=== PATIENT | female | born 1955 | race Caucasian/White ===

== ENCOUNTER 2016-06-26 10:30 | Inpatient (IN) | payer OTHER ==
[~2016-06-26] VITALS: Ht 157.5 cm; Wt 66.2 kg
[~2016-06-26 10:30] MED LIST: MELO7.5 PO
[2016-06-26] MEDS ORDERED: NITROGLYCERIN 2% OINT 1 GM PACKET TOP ONE (10:45)
[2016-06-26] MEDS ORDERED: SODIUM CHLORIDE 0.9% FLUSH 10 ML FLUSH IVF PRN (10:45)
[2016-06-26] MEDS ORDERED: SODIUM CHLORID 0.9% 500 ML INJ 500 ML IV ONE (10:45)
[2016-06-26 10:57] VITALS: BP 122/68; PULSE 92; RESP 20; TEMP 98.2; O2SAT 94
--- NOTE | 2016-06-26 10:57 | PD ---
HPI Chief Complaint: chest pain Time Seen by Provider: 10:42 Travel History International Travel<30 days: No Contact w/Intl Traveler<30days: No History of Present Illness HPI This is a 60 year-old woman who presents to the emergency department complaining of chest pain. She states starting this morning shortly after arriving to work at about 7:30 or so she started getting mid sternal chest pressure that radiated to the left arm. Initially she thought was indigestion but then symptoms started to get worse. She started getting shaky, dizzy, like she couldn't breathe. No diaphoresis. She states she otherwise had been feeling generally well. She's had chest pain intermittently in the past, and no etiology has been found. Review of records show she was seen in June 2011 had a negative myocardial perfusion scan. She did start the nicotine patch yesterday. She states she's used them in the past and try to quit smoking and hasn't really had trouble with it. She smokes about a half pack per day. She' s also been under more stress recently. Risk factors include diabetes, hyperlipidemia, and a family history of heart disease as well as tobacco use. She states she was told at some point in the past she had a previous mini stroke , but has no residual symptoms. History Past Medical History Narrative Medical Diabetes Hyperlipidemia TIA Menopausal: Yes Social History Alcohol Use: No Tobacco Use: Yes (STATES 1 PPD) Allergies-Medications (Allergen,Severity, Reaction): Coded Allergies: Aspirin (Verified Allergy, Severe, HIVES, 06/26/16) Benadryl (Verified Allergy, Severe, HIVES, 06/26/16) Penicillin (Verified Allergy, Severe, HIVES, 06/26/16) Vicodin (Verified Allergy, Severe, HIVES, 06/26/16) Buspar (Verified Allergy, Unknown, UNKOWN RXN, 06/26/16) Reported Meds & Prescriptions Reported Meds & Active Scripts Active No Active Prescriptions or Reported Medications Review of Systems Except as stated in HPI: all other systems reviewed are Neg Physical Exam Narrative GENERAL: Well-appearing 60 year-old woman, no acute distress. SKIN: Focused skin assessment warm/dry. NECK: Trachea midline. No JVD. CARDIOVASCULAR: Regular rate and rhythm. No murmur appreciated. RESPIRATORY: No accessory muscle use. Clear to auscultation. Breath sounds equal bilaterally. GASTROINTESTINAL: Abdomen is flat and soft. She has mild to moderate right upper quadrant tenderness. MUSCULOSKELETAL: No obvious deformities. No edema. NEUROLOGICAL: Awake and alert. No obvious cranial nerve deficits. Motor grossly within normal limits. Normal speech. Data Data Last Documented VS Vital Signs Date Time Temp Pulse Resp B/P Pulse Ox O2 Delivery O2 Flow Rate FiO2 06/26/16 11:00 96 Nasal Cannula 2 06/26/16 10:57 98.2 92 20 122/68 Orders Electrocardiogram (06/26/16 10:42) Ckmb (Isoenzyme) Profile (06/26/16 10:42) Complete Blood Count With Diff (06/26/16 10:42) Comprehensive Metabolic Panel (06/26/16 10:42) Magnesium (Mg) (06/26/16 10:42) Prothrombin Time / Inr (Pt) (06/26/16 10:42) Act Partial Throm Time (Ptt) (06/26/16 10:42) Troponin I (06/26/16 10:42) Lipase (06/26/16 10:42) Chest, Single Ap (06/26/16 10:42) Ecg Monitoring (06/26/16 10:42) Bilateral Bp Monitoring (06/26/16 10:42) Iv Access Insert/Monitor (06/26/16 10:42) Oximetry (06/26/16 10:42) Oxygen Administration (06/26/16 10:42) Nitroglycerin 2% Oint (Nitroglycerin 2% (06/26/16 10:45) Sodium Chloride 0.9% Flush (Ns Flush) (06/26/16 10:45) Sodium Chlorid 0.9% 500 Ml Inj (Ns 500 M (06/26/16 10:45) Us Abdomen Gallbladder (06/26/16 ) Admit Order (Ed Use Only) (06/26/16 ) Labs Laboratory Tests Test 06/26/16 11:05 White Blood Count 10.5 TH/MM3 Red Blood Count 4.55 MIL/MM3 Hemoglobin 12.9 GM/DL Hematocrit 38.7 % Mean Corpuscular Volume 85.0 FL Mean Corpuscular Hemoglobin 28.4 PG Mean Corpuscular Hemoglobin 33.5 % Concent Red Cell Distribution Width 14.3 % Platelet Count 264 TH/MM3 Mean Platelet Volume 9.4 FL Neutrophils (%) (Auto) 67.1 % Lymphocytes (%) (Auto) 26.2 % Monocytes (%) (Auto) 5.3 % Eosinophils (%) (Auto) 0.8 % Basophils (%) (Auto) 0.6 % Neutrophils # (Auto) 7.0 TH/MM3 Lymphocytes # (Auto) 2.8 TH/MM3 Monocytes # (Auto) 0.6 TH/MM3 Eosinophils # (Auto) 0.1 TH/MM3 Basophils # (Auto) 0.1 TH/MM3 CBC Comment DIFF FINAL Differential Comment Prothrombin Time 10.0 SEC Prothromb Time International 0.9 RATIO Ratio Activated Partial 28.5 SEC Thromboplast Time Sodium Level 139 MEQ/L Potassium Level 3.7 MEQ/L Chloride Level 109 MEQ/L Carbon Dioxide Level 21.2 MEQ/L Anion Gap 9 MEQ/L Blood Urea Nitrogen 10 MG/DL Creatinine 0.71 MG/DL Estimat Glomerular Filtration 85 ML/MIN Rate Random Glucose 105 MG/DL Calcium Level 9.0 MG/DL Magnesium Level 1.9 MG/DL Total Bilirubin 0.3 MG/DL Aspartate Amino Transf 10 U/L (AST/SGOT) Alanine Aminotransferase 21 U/L (ALT/SGPT) Alkaline Phosphatase 98 U/L Total Creatine Kinase 82 U/L Troponin I 0.07 NG/ML Total Protein 7.1 GM/DL Albumin 3.5 GM/DL Lipase 184 U/L MDM Medical Decision Making Medical Screen Exam Complete: Yes Emergency Medical Condition: Yes Interpretation(s) My review of EKG: Normal sinus rhythm at a rate of 92, normal axis, normal intervals, no acute ischemia. LABS: CBC is unremarkable. CMP is unremarkable Troponin 0.07 Lipase normal Coags unremarkable Chest x-ray: Negative Right upper quadrant ultrasound: Negative. Differential Diagnosis Chest pain, anxiety, hepatobiliary disease, cholecystitis, other Narrative Course Medical decision making INITIAL: 60 year-old woman who presents emergency Department with midsternal chest pain starting today. She was sounds like she had an anxiety attack associated with it. She's been having some intermittent GI problems. She does stop her gallbladder. She has some mild to moderate tenderness in the right upper quadrant. We'll check ultrasound of her gallbladder, labs and chest x-ray , likely admission to chest pain Center for further evaluation. FINAL: Initial workups unremarkable except for trace elevation in the troponin. Given this elevation, not a candidate for the chest pain Center. We'll plan on admission to medicine for serial cardiac enzymes, further evaluation. Diagnosis Primary Impression: Chest pain Scripts No Active Prescriptions or Reported Meds Prasanth Mccall MD Jun 26, 2016 10:57 Prasanth Mccall MD Jun 26, 2016 10:57
--- NOTE | 2016-06-26 11:07 | RADRPT ---
EXAM DATE/TIME: 06/26/2016 10:40 [facility] COMPARISON: CHEST SINGLE AP, March 31, 2015, 18:15. INDICATIONS : Chest pain. MEDICAL HISTORY : None. Smoker. SURGICAL HISTORY : None. ENCOUNTER: Initial ACUITY: 1 day PAIN SCORE: 3/10 LOCATION: Bilateral chest FINDINGS: A single view of the chest demonstrates the lungs to be symmetrically aerated without evidence of mas s, infiltrate or effusion. The cardiomediastinal contours are unremarkable. Osseous structures are intact. CONCLUSION: No acute disease. Noe Ramos MD FACR on June 26, 2016 at 11:05 Board Certified Radiologist. This report was verified electronically.
[2016-06-26 11:25] LABS: BASOPHIL # 0.1 TH/MM3 (0-0.2); BASOPHIL % 0.6 % (0.0-2.0); EOSINOPHIL # 0.1 TH/MM3 (0-0.4); EOSINOPHIL % 0.8 % (0.0-4.0); HEMATOCRIT 38.7 % (35.0-46.0); HEMO FLAGS DIFF FINAL; LYMPH % 26.2 % (9.0-44.0); LYMPHOCYTE # 2.8 TH/MM3 (1.0-4.8); MEAN CORPUSCULAR HEMOGLOBIN 28.4 PG (27.0-34.0); MEAN CORPUSCULAR HGB CONC 33.5 % (32.0-36.0); MONO % 5.3 % (0.0-8.0); NEUT % 67.1 % (16.0-70.0); PLATELET COUNT 264 TH/MM3 (150-450); RED BLOOD COUNT 4.55 MIL/MM3 (4.00-5.30); RED CELL DISTRIBUTION WIDTH 14.3 % (11.6-17.2); WHITE BLOOD COUNT 10.5 TH/MM3 (4.0-11.0)
[2016-06-26 11:38] LABS: APTT (PATIENT) 28.5 SEC (24.3-30.1); INTERNATIONAL NORMALIZED RATIO 0.9 RATIO
[2016-06-26 11:45] LABS: ALT (GPT) 21 U/L (10-53); ANION GAP 9 MEQ/L (5-15); AST (GOT) 10 U/L (15-37); BICARBONATE 21.2 MEQ/L (21.0-32.0); BLOOD UREA NITROGEN 10 MG/DL (7-18); CHLORIDE 109 MEQ/L (98-107); GLOMERULAR FILTRATION RATE 85 ML/MIN (>89); MAGNESIUM 1.9 MG/DL (1.5-2.5); POTASSIUM 3.7 MEQ/L (3.5-5.1); SODIUM (NA) 139 MEQ/L (136-145)
[2016-06-26 11:49] LABS: ALKALINE PHOSPHATASE 98 U/L (45-117); TOTAL BILIRUBIN ADULT 0.3 MG/DL (0.2-1.0)
--- NOTE | 2016-06-26 11:49 | RADRPT ---
EXAM DATE/TIME: 06/26/2016 11:13 [facility] COMPARISON: No previous studies available for comparison. INDICATIONS : Right upper quadrant pain. MEDICAL HISTORY : Hypercholesterolemia. CAD. Heart attack. SURGICAL HISTORY : section. Foreign body removal from right knee, straight pins. ENCOUNTER: Initial ACUITY: 4-6 days PAIN SCORE: 5/10 LOCATION: Right upper quadrant MEASUREMENTS: LIVER: 15.5 cm length COMMON DUCT: 4 mm RIGHT KIDNEY: 10.9 x 4.5 x 4.5 cm FINDINGS: LIVER: Normal echotexture without focal lesion or ductal dilatation. COMMON DUCT: No intraluminal mass or stone visualized. GALLBLADDER: Contains no stones, demonstrates no wall thickening or pericholecystic fluid. PANCREAS: The visualized portions are within normal limits. RIGHT KIDNEY: No evidence of hydronephrosis, stone, or mass. CONCLUSION: Negative for gallstones. Noe Ramos MD FACR on June 26, 2016 at 11:46 Board Certified Radiologist. This report was verified electronically.
[2016-06-26 11:52] LABS: CREATINE KINASE 82 U/L (26-192)
--- NOTE | 2016-06-26 13:30 | HHI.HP ---
HPI Service Family Medicine Primary Care Physician No Primary Care Physician Admission Diagnosis chest pain, rule out FL Diagnoses: International Travel<30 Days: No Contact w/Intl Traveler<30days: No Known Affected Area: No History of Present Illness 60 yo female with h/o diet-controlled DM presenting for evaluation of chest pain. At work today AM, she got substernal pain in chest which felt like someone sitting on it. [place] like maybe it was indigestion. Getting worse, then she started shaking and feeling dizzy/nauseous. Never had this pain before. A/w SOB. No diaphoresis or palpitations. No panic/fear. She had recently started nicotine patch (1 day prior to symptoms). She had one similar episode in 2012 at which time she had a stress test done which was negative. Review of Systems Constitutional: DENIES: Fever, Chills Endocrine: DENIES: Abnorml menstrual pattern Eyes: DENIES: Blurred vision Ears, nose, mouth, throat: DENIES: Hearing loss, Vertigo Respiratory: COMPLAINS OF: Wheezing, Shortness of breath, DENIES: Cough, Sputum production Cardiovascular: COMPLAINS OF: Chest pain, DENIES: Palpitations, Syncope, Lower Extremity Edema Gastrointestinal: COMPLAINS OF: Nausea, DENIES: Abdominal pain, Black stools, Bloody stools, Constipation, Diarrhea, Vomiting Genitourinary: DENIES: Abnormal vaginal bleeding Musculoskeletal: DENIES: Joint pain Integumentary: DENIES: Rash Hematologic/lymphatic: DENIES: Bruising Neurologic: DENIES: Headache, Localized weakness Psychiatric: DENIES: Anxiety, Depression Past Family Social History Past Medical History DM - diet controlled, glucose 100-150 Hyperlipidemia Past Surgical History C/S Knee operation Left (trauma as child) Reported Medications 81 mg ASA Allergies: Coded Allergies: Aspirin (Verified Allergy, Severe, HIVES, 06/26/16) Benadryl (Verified Allergy, Severe, HIVES, 06/26/16) Penicillin (Verified Allergy, Severe, HIVES, 06/26/16) Vicodin (Verified Allergy, Severe, HIVES, 06/26/16) Buspar (Verified Allergy, Unknown, UNKOWN RXN, 06/26/16) Active Ordered Medications Current Medications Medications (Trade) Dose Ordered Sig/Yvette Route Start Time Stop Time Status Last Admin (NS Flush) 2 ml UNSCH PRN IVF 06/26/16 10:45 (NS Flush) 2 ml UNSCH PRN IV FLUSH 06/26/16 14:15 (NS Flush) 2 ml BID IV FLUSH 06/26/16 21:00 (Senokot) 17.2 mg Q12H PRN PO 06/26/16 14:15 (Ambien) 5 mg HS PRN PO 06/26/16 14:15 (Lovenox Inj) 40 mg Q24H SQ 06/26/16 15:00 06/26/16 15:15 (Tylenol) 650 mg Q6H PRN PO 06/26/16 14:15 Family History Mom - DM, COPD, CHF, HTN Social History Tob - smoked 40 years 1 PPD Alc - Don't drink Rx - none; drugs h/o cocaine, meth Living - mobile home 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 Cool and dry. HEAD: NC/AT EYES: PERRL. EOMI. No conjunctival injection or drainage. ENT: MMM, OP without erythema, tonsillar swelling, or exudate. NECK: No JVD. CARDIOVASCULAR: NRRR. Normal S1/S2. No MRG CHEST: Reproducible chest pain around left parasternal intercostal muscles. CTAB. No crackles or wheezes. GASTROINTESTINAL: Abdomen soft, non-distended, minimally tender to palpation right lateral quadrant. No hepato-splenomegaly or palpable masses. MUSCULOSKELETAL: Extremities without clubbing, cyanosis, or edema. NEUROLOGICAL: Awake and alert. Cranial nerves II through XII grossly intact. Moves all extremities without difficulty. Normal speech. Laboratory Laboratory Tests Test 06/26/16 11:05 White Blood Count 10.5 Red Blood Count 4.55 Hemoglobin 12.9 Hematocrit 38.7 Mean Corpuscular Volume 85.0 Mean Corpuscular Hemoglobin 28.4 Mean Corpuscular Hemoglobin 33.5 Concent Red Cell Distribution Width 14.3 Platelet Count 264 Mean Platelet Volume 9.4 Neutrophils (%) (Auto) 67.1 Lymphocytes (%) (Auto) 26.2 Monocytes (%) (Auto) 5.3 Eosinophils (%) (Auto) 0.8 Basophils (%) (Auto) 0.6 Neutrophils # (Auto) 7.0 Lymphocytes # (Auto) 2.8 Monocytes # (Auto) 0.6 Eosinophils # (Auto) 0.1 Basophils # (Auto) 0.1 CBC Comment DIFF FINAL Differential Comment Prothrombin Time 10.0 Prothromb Time International 0.9 Ratio Activated Partial 28.5 Thromboplast Time Sodium Level 139 Potassium Level 3.7 Chloride Level 109 Carbon Dioxide Level 21.2 Anion Gap 9 Blood Urea Nitrogen 10 Creatinine 0.71 Estimat Glomerular Filtration 85 Rate Random Glucose 105 Calcium Level 9.0 Magnesium Level 1.9 Total Bilirubin 0.3 Aspartate Amino Transf 10 (AST/SGOT) Alanine Aminotransferase 21 (ALT/SGPT) Alkaline Phosphatase 98 Total Creatine Kinase 82 Troponin I 0.07 Total Protein 7.1 Albumin 3.5 Lipase 184 Result Diagram: 06/26/16 1105 06/26/16 1105 Imaging Last Impressions Chest X-Ray 06/26/16 1042 Signed Impressions: Service Date/Time: Sunday, June 26, 2016 10:40 - CONCLUSION: No acute disease. Noe Ramos MD FACR Gall Bladder Ultrasound 06/26/16 0000 Signed Impressions: Service Date/Time: Sunday, June 26, 2016 11:13 - CONCLUSION: Negative for gallstones. Noe Ramos MD FACR Assessment and Plan Assessment and Plan 60 year old female with PMH of diet-controlled DM presenting with: Problem List: (1) Chest pain Status: Acute Plan: History concerning for FL (substernal chest pressure, sudden onset). Patient states she has had panic attacks before and this felt like something different, but panic attack still on differential. CP could also be costochondritis given reproducibility, but with history and lab findings below it is important to r/o acute FL. EKG showing NSR, no ST-T wave changes TnI 0.08 D-dimer 0.53 (normal for age) * Trend troponin, CKMB, EKG * Well's score 0 with negative D-dimer effectively excludes PE * If negative will eventually need stress test * Telemetry * Tylenol as needed for pain * O2 NC titrated to keep SpO2 > 92% (2) DM (diabetes mellitus) Status: Acute Plan: Diabetes, uncomplicated, diet-controlled * Diet heart healthy * Accu-checks ACHS (3) FEN/PPX Status: Acute Plan: Fluids: PO only Elecs: Monitor and replete as needed Nutrition: Diet heart healthy DVT: Lovenox 40 mg SQ daily Pain: Tylenol PRN sdw Dr. Marshall Problem Qualifiers (1) DM (diabetes mellitus): Qualified Code: E11.9 - Type 2 diabetes mellitus without complication, without long-term current use of insulin Benjamín Gorman MD R1 Jun 26, 2016 13:30
[2016-06-26 13:32] VITALS: BP 128/66; PULSE 79; RESP 20; O2SAT 96
[2016-06-26] MEDS ORDERED: SENNOSIDES 8.6 MG TAB PO PRN (14:15)
[2016-06-26] MEDS ORDERED: SODIUM CHLORIDE 0.9% FLUSH 10 ML FLUSH IV FLUSH PRN (14:15)
[2016-06-26] MEDS ORDERED: ZOLPIDEM TARTRATE 5 MG TAB PO PRN (14:15)
[2016-06-26] MEDS ORDERED: ACETAMINOPHEN 325 MG TAB PO PRN (14:15)
[2016-06-26] MEDS ORDERED: ENOXAPARIN SODIUM 40 MG/0.4 ML SYRINGE SQ SCH (15:00)
[2016-06-26 15:18] VITALS: BP 146/74; PULSE 77; RESP 14; O2SAT 99
[2016-06-26 16:00] VITALS: BP 127/69; PULSE 76; RESP 20; TEMP 98.1; O2SAT 98
[2016-06-26 18:00] LABS: CREATINE KINASE 190 U/L (26-192)
[2016-06-26 18:26] LABS: CKMB 2.8 NG/ML (0.5-3.6)
[2016-06-26] MEDS ORDERED: ASPIRIN EC 81 MG TABEC PO SCH (18:30)
[2016-06-26 20:00] VITALS: BP 110/55; PULSE 82; PULSE 83; RESP 20; TEMP 98.1; O2SAT 94
[2016-06-26] MEDS ORDERED: ENOXAPARIN SODIUM 60 MG/0.6 ML SYRINGE SQ SCH (20:00)
[2016-06-26] MEDS: SODIUM CHLORIDE 0.9% FLUSH 10 ML FLUSH IV FLUSH SCH (20:52)
[2016-06-26] MEDS: ASPIRIN EC 81 MG TABEC PO SCH (20:53)
[2016-06-26] MEDS: CLOPIDOGREL 75 MG TAB PO SCH (20:53)
[2016-06-26] MEDS: METOPROLOL TARTRATE 25 MG TAB PO SCH (20:53)
[2016-06-26] MEDS: ATORVASTATIN 40 MG TAB PO SCH (20:53)
[2016-06-27] VITALS (8 sets, daily range): BP systolic 105–137; BP diastolic 55–61; PULSE 71–81; RESP 16–20; TEMP 97.8–98.4; O2SAT 93–97
[2016-06-27 01:13] LABS: CREATINE KINASE 166 U/L (26-192)
[2016-06-27 01:27] LABS: CKMB 2.2 NG/ML (0.5-3.6)
[2016-06-27 07:26] LABS: HEMATOCRIT 39.7 % (35.0-46.0); MEAN CORPUSCULAR HEMOGLOBIN 28.6 PG (27.0-34.0); MEAN CORPUSCULAR HGB CONC 33.2 % (32.0-36.0); PLATELET COUNT 206 TH/MM3 (150-450); RED BLOOD COUNT 4.62 MIL/MM3 (4.00-5.30); RED CELL DISTRIBUTION WIDTH 14.3 % (11.6-17.2); REVIEW FLAG FINAL; WHITE BLOOD COUNT 7.9 TH/MM3 (4.0-11.0)
--- NOTE | 2016-06-27 07:30 | HHI.FPPN ---
Subjective Remarks Delonte Retana is a 60yo lady with medical history significant for DM II which is diet-controlled admitted under observation for evaluation of chest pain. Chest pain was sudden onset, substernal, and described like someone sitting on her chest. + associated Shortness of Breath. Of note, she placed a nicotine patch for the first time the day prior to her symptoms. For further details, please see resident H&P. Overnight, there were no issues. This morning, pt is seen with brother in room. She reports some SOB, which has improved somewhat. She also reports some mild chest pressure substernally as well. No palpitations. She is lying flat in bed. ROS: +SOB, + chest pain. No palpitations. No edema. No fevers, no chills. No nausea. All other systems reviewed are negative. PMH/PSxH/SocHx/FamHx: Per resident H&P. Significant for: DM II, diet-controlled ; hyperlipidemia. Left knee surgery and . +Fam hx of DM II, CHF, COPD, and HTN in her mother. Her sister with DVTs of Lower extremities. Trying to quit smoking, 1PPD x 40 years. No alcohol, no recreational drug use currently ( previously cocaine and meth). 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 Objective Vitals Vital Signs Date Time Temp Pulse Resp B/P Pulse Ox O2 Delivery O2 Flow Rate FiO2 06/27/16 04:00 98.2 76 20 128/58 94 06/27/16 00:00 98.0 80 20 110/55 93 06/26/16 23:33 Nasal Cannula 2.00 06/26/16 20:00 98.1 82 20 110/55 94 06/26/16 20:00 83 06/26/16 16:00 98.1 76 20 127/69 98 06/26/16 15:18 77 14 146/74 99 Nasal Cannula 2 06/26/16 13:32 79 20 128/66 96 Nasal Cannula 2 06/26/16 11:00 96 Nasal Cannula 2 06/26/16 10:57 98.2 92 20 122/68 94 I/O 06/26/16 06/26/16 06/26/16 06/27/16 06/27/16 06/27/16 07:00 15:00 23:00 07:00 15:00 23:00 Intake Total 620 ml Output Total 350 ml Balance 270 ml Intake Oral 620 ml Output Urine Total 350 ml # Voids 2 # Bowel Movements 0 Result Diagram: 06/27/16 0643 06/26/16 1105 Objective Remarks GENERAL: in NAD, no resp distress. Nontoxic. Talks in complete sentences. Accompanied by brother. HEENT: NCAT, EOMI, no scleral icterus, no conjunctival injection. MMM. NECK: Supple, no meningeal signs. Trachea midline. CV: RRR, S1 S2. No murmurs CHEST/PULM: CTAB, no crackles, no wheezes. + tenderness to palpation left anterior chest, which reproduces her pain. ABD/GI: +BS, soft, nondistended. Mild tenderness throughout. Negative Davila's sign. EXT: 2+ DP pulses. No edema. Mild bilateral calf tenderness. No palpable cords. NEURO: Awake, alert. normal muscle tone. Grossly nonfocal. SKIN: No rashes, no jaundice. PSYCH: Mood and affect are appropriate. Speech fluent. Does not appear to respond to internal stimuli. A/P Assessment and Plan 60 year old female with PMH of diet-controlled DM admitted under observation for acute onset of substernal chest pain. Attending Attestation Patient seen, examined, and discussed with resident team. Chart has been reviewed. Problem List: (1) Chest pain Status: Acute Plan: History concerning for MA (substernal chest pressure, sudden onset). Patient states she has had panic attacks before and this felt like something different, but panic attack still on differential. CP could also be costochondritis given reproducibility, but with history and lab findings below it is important to r/o acute MA. EKG #2 with inverted T waves in lead V2, which is a change from EKG #1. Troponin 0.07--> 0.8 --> 0.36. Although D-Dimer normal for age at 0.53 (less than 0.58) and Wells score is 0, given acute onset of chest pain and elevated troponin, which improved without intervention, will check CTA to evaluate for PE. (2) DM (diabetes mellitus) Status: Chronic Plan: Diabetes, uncomplicated, diet-controlled * Diet heart healthy * Accu-checks ACHS * Provide/order sliding scale insulin if glucose is elevated. (3) Tobacco abuse Status: Chronic Plan: Pt currently attempting to quit. Smoking cessation is encouraged. Problem Qualifiers (1) DM (diabetes mellitus): Qualified Code: E11.9 - Type 2 diabetes mellitus without complication, without long-term current use of insulin Denise Aly MD Jun 27, 2016 07:30 Problem Qualifiers (1) DM (diabetes mellitus): Qualified Code: E11.9 - Type 2 diabetes mellitus without complication, without long-term current use of insulin Denise Aly MD Jun 27, 2016 07:30 Intake Oral 620 ml Output Urine Total 350 ml # Voids 2 # Bowel Movements 0 Result Diagram: 06/27/16 0643 06/26/16 1105 Objective Remarks GENERAL: HEENT: NECK: CV: CHEST/PULM: ABD/GI: EXT: NEURO: SKIN: PSYCH: A/P Assessment and Plan 60 year old female with PMH of diet-controlled DM presenting with: Problem List: (1) Chest pain Status: Acute Plan: History concerning for MA (substernal chest pressure, sudden onset). Patient states she has had panic attacks before and this felt like something different, but panic attack still on differential. CP could also be costochondritis given reproducibility, but with history and lab findings below it is important to r/o acute MA. EKG showing NSR, no ST-T wave changes TnI 0.08 D-dimer 0.53 (normal for age) * Trend troponin, CKMB, EKG * Well's score 0 with negative D-dimer effectively excludes PE * If negative will eventually need stress test * Telemetry * Tylenol as needed for pain * O2 NC titrated to keep SpO2 > 92% (2) DM (diabetes mellitus) Status: Acute Plan: Diabetes, uncomplicated, diet-controlled * Diet heart healthy * Accu-checks ACHS (3) FEN/PPX Status: Acute Plan: Fluids: PO only Elecs: Monitor and replete as needed Nutrition: Diet heart healthy DVT: Lovenox 40 mg SQ daily Pain: Tylenol PRN sdw Dr. Marshall Problem Qualifiers (1) DM (diabetes mellitus): Qualified Code: E11.9 - Type 2 diabetes mellitus without complication, without long-term current use of insulin Denise Aly MD Jun 27, 2016 07:30
[2016-06-27 08:08] LABS: BICARBONATE 24.4 MEQ/L (21.0-32.0); HDL CHOLESTEROL 32.9 MG/DL (40.0-60.0)
[2016-06-27] MEDS: CLOPIDOGREL 75 MG TAB PO SCH (09:55)
[2016-06-27] MEDS: SODIUM CHLORIDE 0.9% FLUSH 10 ML FLUSH IV FLUSH SCH ×2 (09:56→21:00)
[2016-06-27] MEDS: METOPROLOL TARTRATE 25 MG TAB PO SCH ×2 (09:56→21:29)
[2016-06-27] MEDS: ASPIRIN EC 81 MG TABEC PO SCH (09:56)
[2016-06-27] MEDS ORDERED: IOHEXOL 350 MG/ML 10 ML VIAL (for RAD DIAG) IV ONE (10:38)
--- NOTE | 2016-06-27 10:38 | EKG ---
Date Performed: 06/26/2016 Time Performed: 18:49:10 PTAGE: 60 years EKG: Sinus rhythm Low QRS voltages in precordial leads Borderline ECG PREVIOUS TRACING : 06/26/2016 13.46 DOCTOR: Fransico Dowell Interpretating Date/Time 06/27/2016 10:34:32
--- NOTE | 2016-06-27 10:44 | EKG ---
Date Performed: 06/26/2016 Time Performed: 13:46:00 PTAGE: 60 years EKG: Sinus rhythm LOW QRS VOLTAGE IN PRECORDIAL LEADS BORDERLINE ECG PREVIOUS TRACING : 06/26/2016 10.46 DOCTOR: Fransico Dowell Interpretating Date/Time 06/27/2016 10:41:33
--- NOTE | 2016-06-27 11:17 | RADRPT ---
EXAM DATE/TIME: 06/27/2016 10:31 [facility] COMPARISON: CT BRAIN W/O CONTRAST, March 23, 2014, 17:33. INDICATIONS : Substernal chest pain for 2 days IV CONTRAST: 75 cc Omnipaque 350 (iohexol) IV RADIATION DOSE: 23.13 CTDIvol (mGy) MEDICAL HISTORY : Diabetes mellitus type 1. SURGICAL HISTORY : None. ENCOUNTER: Initial ACUITY: 1 day PAIN SCALE: 4/10 LOCATION: chest TECHNIQUE: Volumetric scanning of the chest was performed using a pulmonary embolism protocol MIP images were re constructed. Using automated exposure control and adjustment of the mA and/or kV according to patien t size, radiation dose was kept as low as reasonably achievable to obtain optimal diagnostic quality images. FINDINGS: PULMONARY ARTERIES: The examination is of good diagnostic quality. No pulmonary embolus is identified. LUNGS: There is no consolidation or pneumothorax . No concerning pulmonary nodule is visualized. PLEURAE: There is no pleural thickening or pleural effusion. MEDIASTINUM: There is good visualization of the great vessels of the middle mediastinum. No evidence of mediastin al or hilar adenopathy/mass. MUSCULOSKELETAL: Within normal limits for patient age. MISCELLANEOUS: The visualized upper abdominal organs demonstrate no acute abnormality. CONCLUSION: 1. No pulmonary embolus identified. The lungs are clear. Tej Ramos MD on June 27, 2016 at 11:11 Board Certified Radiologist. This report was verified electronically.
--- NOTE | 2016-06-27 11:23 | EKG ---
Date Performed: 06/26/2016 Time Performed: 10:46:17 PTAGE: 60 years EKG: Sinus rhythm LOW QRS VOLTAGE IN PRECORDIAL LEADS BORDERLINE ECG PREVIOUS TRACING : 03/31/2015 17.35 DOCTOR: Fransico Dowell Interpretating Date/Time 06/27/2016 11:21:31
[2016-06-27] MEDS ORDERED: HEPARIN-D5W INJ 250 ML IV SCH (15:00)
[2016-06-27 16:59] LABS: APTT (PATIENT) 29.1 SEC (24.3-30.1); INTERNATIONAL NORMALIZED RATIO 0.9 RATIO; PROTHROMBIN TIME - PATIENT 9.9 SEC (9.8-11.6)
[2016-06-27] MEDS ORDERED: SODIUM CHLOR 0.9% 1000 ML INJ 1,000 ML IV ONE (17:00)
[2016-06-27] MEDS: ATORVASTATIN 40 MG TAB PO SCH (21:29)
[2016-06-27 23:32] LABS: APTT (PATIENT) 32.6 SEC (24.3-30.1)
[2016-06-28] VITALS: BP 121/58; PULSE 73; RESP 18; TEMP 97.5; O2SAT 92
[2016-06-28 04:00] VITALS: BP 129/70; PULSE 71; RESP 18; TEMP 97.7; O2SAT 94
[2016-06-28 07:20] LABS: APTT (PATIENT) 36.6 SEC (24.3-30.1)
[2016-06-28 07:38] VITALS: O2SAT 97
--- NOTE | 2016-06-28 07:42 | PD.CONS ---
HPI Service CV Consult Requested By Reason for Consult CP Primary Care Physician No Primary Care Physician History of Present Illness Here with type 2 diabetes and hyperlipidemia for chest pain. She was at work on Monday when she began having retrosternal chest pressure, "like some one sitting on my chest". It was associated with shortness of breath and nausea. It did not radiate. It lasted from the time she was at work until EMS brought her to the ER. It has continued to wax and wane here in the hospital. She started to try to quit smoking on Monday and was wearing a nicotine patch. She first thought that she was having a reaction to the patch. She has never had chest pain like this before. She has a strong family history of CAD. (Darryn Haddad) Review of Systems Consitutional: DENIES: Fatigue, Fever, Chills, Weight gain, Weight loss Eyes: DENIES: Amaurosis Fugax, Change in vision HEENT: DENIES: Lightheadedness, Change in hearing Respiratory: DENIES: See HPI, Cough, Snoring, Shortness of breath, Wheezing, Sputum production Cardiovascular: COMPLAINS OF: See HPI Gastrointestinal: DENIES: Nausea, Vomiting, Change in bowel habits, Reflux, Bloody stools, Melena Genitourinary: DENIES: Urinary incontinence, Difficulty voiding Integumentary: DENIES: Rash Neurologic: DENIES: Tingling or numbness, Memory problems, Poor Balance, Stroke symptoms Musculoskeletal: DENIES: Joint pain, Muscle pain, Limited range of motion, Back pain Psychiatric: DENIES: Anxiety, Depression, Sleep disturbances Hematologic: DENIES: Bruising tendencies, Bleeding tendencies Endocrine: DENIES: Weight gain, Weight loss, Thyroid disease (Darryn Haddad ) Past Family Social History Allergies: Coded Allergies: Benadryl (Verified Allergy, Severe, HIVES, 06/26/16) Penicillin (Verified Allergy, Severe, HIVES, 06/26/16) Vicodin (Verified Allergy, Severe, HIVES, 06/26/16) Buspar (Verified Allergy, Unknown, UNKOWN RXN, 06/26/16) Past Medical History DM - diet controlled, glucose 100-150 Hyperlipidemia Past Surgical History C/S Knee operation Left (trauma as child) Reported Medications Reported Meds & Active Scripts Active No Active Prescriptions or Reported Medications Active Ordered Medications Current Medications Medications (Trade) Dose Ordered Sig/Yvette Route Start Time Stop Time Status Last Admin (NS Flush) 2 ml UNSCH PRN IV FLUSH 06/26/16 14:15 (NS Flush) 2 ml BID IV FLUSH 06/26/16 21:00 06/27/16 09:56 (Senokot) 17.2 mg Q12H PRN PO 06/26/16 14:15 (Ambien) 5 mg HS PRN PO 06/26/16 14:15 (Tylenol) 650 mg Q6H PRN PO 06/26/16 14:15 (Lipitor) 80 mg HS PO 06/26/16 21:00 06/27/16 21:29 (Plavix) 75 mg DAILY PO 06/26/16 18:30 06/27/16 09:55 (Ecotrin Ec) 81 mg DAILY PO 06/26/16 19:15 06/27/16 09:56 Metoprolol Tartrate 25 mg 25 mg Q12HR PO 06/26/16 21:00 06/27/16 21:29 (Heparin-D5W Inj) 250 ml @ 0 mls/hr TITRATE IV 06/27/16 15:00 06/27/16 16:29 Family History cardiac Social History Tob - smoked 40 years 1 PPD denies EtOH h/o cocaine, meth (Darryn Haddad) Physical Exam Vital Signs Vital Signs Date Time Temp Pulse Resp B/P Pulse Ox O2 Delivery O2 Flow Rate FiO2 06/28/16 04:00 97.7 71 18 129/70 94 06/28/16 00:00 97.5 73 18 121/58 92 06/27/16 20:00 79 06/27/16 20:00 97.8 79 18 129/60 97 06/27/16 20:00 97.8 79 18 129/60 97 06/27/16 16:00 98.1 73 16 137/61 96 06/27/16 12:11 98.2 71 16 105/60 95 06/27/16 08:11 98.4 79 16 119/60 94 06/27/16 08:00 81 06/27/16 07:59 95 21 Physical Exam GENERAL: Well-nourished, well-developed patient in no apparent distress. NECK: No JVD. No carotid bruit. CARDIOVASCULAR: Regular rate and rhythm. S1/S2 no murmur, rub, or gallop. RESPIRATORY: No accessory muscle use. Clear to auscultation. Breath sounds equal bilaterally. GASTROINTESTINAL: Abdomen soft, non-tender, nondistended. MUSCULOSKELETAL: Extremities without clubbing, cyanosis, or edema. Laboratory Laboratory Tests Test 06/27/16 06/27/16 16:15 22:24 Prothrombin Time 9.9 Prothromb Time International 0.9 Ratio Activated Partial 29.1 32.6 Thromboplast Time (Darryn Haddad) Result Diagram: 06/27/16 0643 06/27/16 0643 Assessment and Plan Problem List: (1) Chest pain Assessment and Plan NSTEMI - plan coronary angiogram this morning and go from there. She will need ASA and statin going forward. Further medical therapy will depend on the outcome of the angiogram (Darryn Haddad) Assessment and Plan suggestive symptoms NSTEMI plan for coronary angiography (Prasanth Seo MD) Darryn Haddad Jun 28, 2016 07:42 Prasanth Seo MD Jun 28, 2016 08:18
[2016-06-28 08:00] VITALS: BP 114/62; PULSE 82; RESP 18; TEMP 98; O2SAT 99
[2016-06-28 08:07] VITALS: PULSE 73
[2016-06-28] MEDS: ASPIRIN EC 81 MG TABEC PO SCH (09:11)
[2016-06-28] MEDS: METOPROLOL TARTRATE 25 MG TAB PO SCH (09:11)
[2016-06-28] MEDS: SODIUM CHLORIDE 0.9% FLUSH 10 ML FLUSH IV FLUSH SCH (09:13)
--- NOTE | 2016-06-28 09:31 | HHI.FPPN ---
Objective Vitals Vital Signs Date Time Temp Pulse Resp B/P Pulse Ox O2 Delivery O2 Flow Rate FiO2 06/28/16 04:00 97.7 71 18 129/70 94 06/28/16 00:00 97.5 73 18 121/58 92 06/27/16 20:00 79 06/27/16 20:00 97.8 79 18 129/60 97 06/27/16 20:00 97.8 79 18 129/60 97 06/27/16 16:00 98.1 73 16 137/61 96 06/27/16 12:11 98.2 71 16 105/60 95 I/O 06/27/16 06/27/16 06/27/16 06/28/16 06/28/16 06/28/16 07:00 15:00 23:00 07:00 15:00 23:00 Intake Total 620 ml 482 ml 240 ml 240 ml Output Total 350 ml Balance 270 ml 482 ml 240 ml 240 ml Intake Oral 620 ml 480 ml 240 ml 240 ml IV Total 2 ml Output Urine Total 350 ml # Voids 2 3 1 1 # Bowel Movements 0 2 0 0 Result Diagram: 06/27/16 0643 06/27/16 0643 Objective Remarks GENERAL: in NAD, no resp distress. Nontoxic. Talks in complete sentences. Accompanied by brother. HEENT: NCAT, EOMI, no scleral icterus, no conjunctival injection. MMM. NECK: Supple, no meningeal signs. Trachea midline. CV: RRR, S1 S2. No murmurs CHEST/PULM: CTAB, no crackles, no wheezes. + tenderness to palpation left anterior chest, which reproduces her pain. ABD/GI: +BS, soft, nondistended. Mild tenderness throughout. Negative Davila's sign. EXT: 2+ DP pulses. No edema. Mild bilateral calf tenderness. No palpable cords. NEURO: Awake, alert. normal muscle tone. Grossly nonfocal. SKIN: No rashes, no jaundice. PSYCH: Mood and affect are appropriate. Speech fluent. Does not appear to respond to internal stimuli. A/P Assessment and Plan 60 year old female presented with acute chest pain and elevated cardiac enzymes , possible NSTEMI. Discharge Planning Pending coronary angiogram, will need medical therapy to optimize prevention for further episodes, possible intervention depending on results of angiogram Problem List: (1) Chest pain Status: Acute Plan: History concerning for NM (substernal chest pressure, sudden onset). Patient states she has had panic attacks before and this felt like something different, but panic attack still on differential. CP could also be costochondritis given reproducibility, but with history and lab findings below it is important to r/o acute NM. EKG #2 with inverted T waves in lead V2, which is a change from EKG #1. Troponin 0.07--> 0.8 --> 0.36. - Cardiology on board - Coronary angiography planned for today. - Aspirin, high dose statin, metoprolol for medical management - Intervention will depend on results of coronary angiography today (2) DM (diabetes mellitus) Status: Chronic Plan: Diabetes, uncomplicated, diet-controlled * Diet heart healthy * Accu-checks ACHS * Sliding scale insulin if needed (3) Hyperlipidemia Status: Chronic (4) Tobacco abuse Status: Chronic Plan: Pt currently attempting to quit. Smoking cessation is encouraged. Problem Qualifiers (1) DM (diabetes mellitus): Qualified Code: E11.9 - Type 2 diabetes mellitus without complication, without long-term current use of insulin Yuan Marshall MD R2 Jun 28, 2016 09:31
[2016-06-28] MEDS ORDERED: HEPARIN-NS/PF INJ 500 ML ONE (10:42)
--- NOTE | 2016-06-28 10:44 | EKG ---
Date Performed: 06/26/2016 Time Performed: 23:24:16 PTAGE: 60 years EKG: Sinus rhythm . Septal T wave changes are nonspecific Low QRS voltages in precordial leads Borderline ECG Compared to prior tracing no significant change PREVIOUS TRACING 06/26/2016 18.49.10 DOCTOR: Marya Nieves Interpretating Date/Time 06/28/2016 10:37:15
[2016-06-28] MEDS ORDERED: NITROGLYCERIN INJ 5 ML ONE (10:46)
[2016-06-28] MEDS ORDERED: HEPARIN SODIUM - IV 10,000 UNITS/10 ML VIAL ONE (10:46)
[2016-06-28] MEDS ORDERED: MIDAZOLAM HCL 2 MG/2 ML VIAL ONE (10:59)
[2016-06-28] MEDS ORDERED: ADENOSINE STRESS TEST INJ 90 MG/30 ML VIAL ONE (11:40)
[2016-06-28] MEDS ORDERED: MISC INFORMATION XX ONE (12:15)
--- NOTE | 2016-06-28 12:28 | MA ---
cc: YOLY GARCIA DATE 06/28/2016 PROCEDURE PERFORMED 1. Fluoroscopy with interpretation 2. Coronary angiography 3. Pressure derived fractional flow reserve of the first obtuse marginal branch, first diagonal branch, and mid left anterior descending coronary arteries. 4. Left heart catheterizations METHOD The risks, benefits and alternatives discussed with the patient, the patient understood and consented to the procedure. PROCEDURE The patient brought into the catheterization lab, placed on the catheterization table. The right wrist was prepped and draped in sterile fashion. The right wrist was anesthetized with 2% lidocaine. The right radial artery was cannulated and a 6-[place] 7 cm sheath was placed without difficulty. LEFT HEART CATHETERIZATION A 6-[place] JR-5 catheter was advanced across the aortic valve without difficulty. Intraoperative ventricular hemodynamics measured 91/11 mmHg. CORONARY ANGIOGRAPHY 1. Left main coronary has minor luminal irregularities. 2. Left anterior descending coronary in the mid segment has a 30% stenosis at the bifurcation of the first diagonal branch. The remainder of the vessel has minor luminal irregularities. The first diagonal branch has a steep angled takeoff. There did appear to be moderate stenosis present. Estimated severity about 50%. 3. Left circumflex is a dominant vessel giving rise to left-sided posterior descending branch. The circumflex itself has minor luminal irregularities. The posterior descending branch has minor luminal irregularities, the first obtuse marginal branch has 40% stenosis in the mid segment. 4. The right coronary is a nondominant small vessel. PRESSURE DERIVED FRACTIONAL FLOW RESERVE MEASUREMENT Given the patient's suggested symptoms and elevated troponin, we wanted to make 100% sure that there were no hemodynamically significant stenoses present. The pressure wire was then prepped, calibrated and was advanced through an AL-1 guide selectively engaging the left main coronary artery. A pressure wire was normalized. The wire was advanced to the distal segment of the first obtuse marginal branch and IFR was recording 0.93 which did not meet hemodynamic significance. The wire was then pulled back directed down to the distal left anterior descending coronary artery. IFR was performed at 0.93 which did not meet hemodynamic significance. The wire was then carefully directed down the mid to distal segment of the diagonal branch. IFR was performed which came back at 0.90. This was in the intermediate zone for hemodynamic significance. We elected then to proceed with FFR. Adenosine was administered at 240 mcg/K per minute for three minutes. The initial translesional pressure gradient was 0.93. Adenosine administration, it was 0.90 which did not meet hemodynamic significance. The wire was removed. Guide catheter removed. HemoBand applied. CONCLUSIONS 1. Moderate branch vessel coronary artery disease. 2. Normal left-sided filling pressures. PLAN The patient will be continued on aggressive medical therapy with aspirin and Plavix, statin, beta nick. In addition, we will add long-acting nitrate. We will check an echocardiogram and otherwise she is okay for discharge. She can follow up in the outpatient setting. MD ANGEL Hurley/LAYNE /12:09 PM /12:20 PM
[2016-06-28] MEDS ORDERED: BACITRACIN OINT 0.9 GM PKT TOP ONE (13:00)
--- NOTE | 2016-06-28 13:50 | HHI.DCPOC ---
Discharge Care Plan Diagnosis: (1) Chest pain (2) DM (diabetes mellitus) Goals to Promote Your Health * To prevent worsening of your condition and complications * To maintain your health at the optimal level Directions to Meet Your Goals Take your medications as prescribed Follow your dietary instruction Follow activity as directed Keep your appointments as scheduled Take your immunizations and boosters as scheduled If your symptoms worsen call your PCP, if no PCP go to Urgent Care Center or Emergency Room Smoking is Dangerous to Your Health. Avoid second hand smoke Call the 24-hour hour crisis hotline for domestic abuse at Benjamín Gorman MD R1 Jun 28, 2016 1:50 pm
[2016-06-28] MEDS ORDERED: LIPI40TA PO (13:55)
[2016-06-28] MEDS ORDERED: ISOS30TA3 PO (13:55)
[2016-06-28] MEDS ORDERED: METO25TA3 PO (13:55)
[2016-06-28] MEDS ORDERED: PLAV75TA29 PO (13:55)
[2016-06-28] MEDS ORDERED: ASPI81TA11 PO (13:55)
--- NOTE | 2016-06-28 15:13 | HHI.FPPN ---
Subjective Remarks No acute events overnight. AFVSS. Seen today post-catheterization. No chest pain at present. No SOB. Feeling well after procedure. No N/V. (Benjamín Gorman MD R1) Objective Vitals Vital Signs Date Time Temp Pulse Resp B/P Pulse Ox O2 Delivery O2 Flow Rate FiO2 06/28/16 08:07 73 06/28/16 08:00 98.0 82 18 114/62 99 06/28/16 07:38 97 21 06/28/16 04:00 97.7 71 18 129/70 94 06/28/16 00:00 97.5 73 18 121/58 92 06/27/16 20:00 79 06/27/16 20:00 97.8 79 18 129/60 97 06/27/16 20:00 97.8 79 18 129/60 97 06/27/16 16:00 98.1 73 16 137/61 96 I/O 06/27/16 06/27/16 06/27/16 06/28/16 06/28/16 06/28/16 07:00 15:00 23:00 07:00 15:00 23:00 Intake Total 620 ml 482 ml 240 ml 240 ml 262 ml Output Total 350 ml Balance 270 ml 482 ml 240 ml 240 ml 262 ml Intake Oral 620 ml 480 ml 240 ml 240 ml 240 ml IV Total 2 ml 22 ml Output Urine Total 350 ml # Voids 2 3 1 1 1 # Bowel Movements 0 2 0 0 (Benjamín Gorman MD R1) Result Diagram: 06/27/16 0643 06/27/16 [address] Angiography 06/27/16 0000 Signed Impressions: Service Date/Time: Monday, June 27, 2016 10:31 - CONCLUSION: 1. No pulmonary embolus identified. The lungs are clear. Tej Ramos MD Chest X-Ray 06/26/16 1042 Signed Impressions: Service Date/Time: Sunday, June 26, 2016 10:40 - CONCLUSION: No acute disease. Noe Ramos MD FACR Gall Bladder Ultrasound 06/26/16 0000 Signed Impressions: Service Date/Time: Sunday, June 26, 2016 11:13 - CONCLUSION: Negative for gallstones. Noe Ramos MD FACR Objective Remarks GENERAL: in NAD, no resp distress. Nontoxic. Talks in complete sentences. Accompanied by brother. CV: NRRR, S1 S2. No murmurs CHEST/PULM: Clear lung denton anteriorly EXT: 2+ DP pulses BLE. No edema. NEURO: Awake, alert. normal muscle tone. Grossly nonfocal. SKIN: No rashes, no jaundice. PSYCH: Mood and affect are appropriate. Speech fluent. Does not appear to respond to internal stimuli. Procedures Cardiac catheterization 06/28/16 (Benjamín Gorman MD R1) A/P Assessment and Plan 60 year old female presented with: Discharge Planning Home today (Benjamín Gorman MD R1) Attending Attestation Patient seen and examined, discussed with resident team. I agree with assessment and management as documented and discussed with me. Pt with mild left anterior chest pain. To cath today by Dr Seo. Await results of cath prior to discharge. (Denise Aly MD) Problem List: (1) NSTEMI (non-ST elevated myocardial infarction) Status: Acute Plan: With classic chest pain, troponin elevation, and catheterization showing CAD, likely diagnosis is NSTEMI vs unstable angina - Cardiology consulted, appreciate recommendations - Aspirin, high dose statin, metoprolol for medical management - Added isosorbide mononitrate per cardiology recommendations - Stable for D/C with outpatient follow up (2) DM (diabetes mellitus) Status: Chronic Plan: Diabetes, uncomplicated, diet-controlled * Routine outpatient follow up (3) Hyperlipidemia Status: Chronic Plan: Lipid profile showing elevated LDL, low HDL, mildly elevated TG - Continue high intensity statin as above - F/u outpatient (4) Tobacco abuse Status: Chronic Plan: Pt currently attempting to quit. Smoking cessation is encouraged dw Dr. Aly (Benjamín Gorman MD R1) Problem Qualifiers (1) DM (diabetes mellitus): Qualified Code: E11.9 - Type 2 diabetes mellitus without complication, without long-term current use of insulin (2) Hyperlipidemia: Qualified Code: E78.2 - Mixed hyperlipidemia Benjamín Gorman MD R1 Jun 28, 2016 15:12 Denise Aly MD Jun 28, 2016 19:37
--- NOTE | 2016-06-28 17:40 | HHI.DS ---
Discharge Summary Admission Date Jun 27, 2016 at 2:55 pm Discharge Date: Jun 28, 2016 Admitting Diagnosis chest pain, rule out OR (1) NSTEMI (non-ST elevated myocardial infarction) Diagnosis: Principal Plan: With classic chest pain, troponin elevation, and catheterization showing CAD, likely diagnosis is NSTEMI vs unstable angina - Cardiology consulted, appreciate recommendations - Aspirin, high dose statin, metoprolol for medical management - Added isosorbide mononitrate per cardiology recommendations - Stable for D/C with outpatient follow up (2) DM (diabetes mellitus) Diagnosis: Secondary Plan: Diabetes, uncomplicated, diet-controlled * Routine outpatient follow up (3) Hyperlipidemia Diagnosis: Secondary Plan: Lipid profile showing elevated LDL, low HDL, mildly elevated TG - Continue high intensity statin as above - F/u outpatient (4) Tobacco abuse Diagnosis: Secondary Plan: Pt currently attempting to quit. Smoking cessation is encouraged dw Dr. Aly [facility] - Minor Procedures Cardiac catheterization 06/28/16 Brief History 60 yo female with h/o diet-controlled DM presenting for evaluation of chest pain. At work today AM, she got substernal pain in chest which felt like someone sitting on it. [place] like maybe it was indigestion. Getting worse, then she started shaking and feeling dizzy/nauseous. Never had this pain before. A/w SOB. No diaphoresis or palpitations. No panic/fear. She had recently started nicotine patch (1 day prior to symptoms). She had one similar episode in 2011 at which time she had a stress test done which was negative. CBC/BMP: 06/27/16 0643 06/27/16 0643 Significant Findings Laboratory Tests Test 06/26/16 06/26/16 06/27/16 06/27/16 11:05 16:40 00:20 06:43 Chloride Level 109 MEQ/L (98-107) Estimat Glomerular Filtration 85 ML/MIN (>89) Rate Aspartate Amino Transf 10 U/L (15-37) (AST/SGOT) Troponin I 0.07 NG/ML 0.81 NG/ML 0.36 NG/ML (0.02-0.05) (0.02-0.05) (0.02-0.05) D-Dimer Quantitative (PE/DVT) 0.53 MG/L FEU (0.00-0.50) Random Glucose 109 MG/DL (74-106) Triglycerides Level 233 MG/DL (42-150) Cholesterol Level 231 MG/DL (120-200) LDL Cholesterol 152 MG/DL (0-99) HDL Cholesterol 32.9 MG/DL (40.0-60.0) Test 06/27/16 06/28/16 22:24 06:19 Activated Partial 32.6 SEC 36.6 SEC Thromboplast Time (24.3-30.1) (24.3-30.1) Imaging Last Impressions CT Angiography 06/27/16 0000 Signed Impressions: Service Date/Time: Monday, June 27, 2016 10:31 - CONCLUSION: 1. No pulmonary embolus identified. The lungs are clear. Tej Ramos MD Chest X-Ray 06/26/16 1042 Signed Impressions: Service Date/Time: Sunday, June 26, 2016 10:40 - CONCLUSION: No acute disease. Noe Ramos MD FACR Gall Bladder Ultrasound 06/26/16 0000 Signed Impressions: Service Date/Time: Sunday, June 26, 2016 11:13 - CONCLUSION: Negative for gallstones. Noe Ramos MD FACR PE at Discharge GENERAL: in NAD, no resp distress. Nontoxic. Talks in complete sentences. Accompanied by brother. CV: NRRR, S1 S2. No murmurs CHEST/PULM: Clear lung denton anteriorly EXT: 2+ DP pulses BLE. No edema. NEURO: Awake, alert. normal muscle tone. Grossly nonfocal. SKIN: No rashes, no jaundice. PSYCH: Mood and affect are appropriate. Speech fluent. Does not appear to respond to internal stimuli. Hospital Course Admitted for chest pain, history suggestive of OR. Troponin elevated from 0.08 to 0.81, EKG showing no ST elevations but some T-wave inversions in V1-2. Started on medical management for NSTEMI. CTA negative for PE. Cardiology consulted regarding need for cath vs safety of myocardial perfusion scan. Cath performed 06/[address] Seo, showed coronary artery disease, no blockage requiring stent. Cardiology recommended medical management with ASA, Plavix, statin, beta-nick, long-acting nitrate. Meds ordered as below. Cleared for discharge by cardiology, stable medically. Pt Condition on Discharge: Stable Discharge Disposition: Discharge Home Discharge Instructions DIET: Follow Instructions for: Heart Healthy Diet Activities you can perform: Regular-No Restrictions Follow up Referrals: Appointment for Follow Up - 1 Week New Medications: Aspirin DR (Aspirin EC) 81 Mg Tabdr 81 MG PO DAILY #30 TAB Atorvastatin (Lipitor) 40 Mg Tab 80 MG PO HS #30 TAB Clopidogrel (Plavix) 75 Mg Tab 75 MG PO DAILY #30 TAB Isosorbide Mononitrate ER (Isosorbide Mononitrate ER) 30 Mg Francesco 30 MG PO DAILY@07 #30 TAB Metoprolol Tartrate (Metoprolol Tartrate) 25 Mg Tab 25 MG PO Q12HR #60 TAB Benjamín Gorman MD R1 Jun 28, 2016 5:40 pm
[2016-06-29] MEDS ORDERED: ISOSORBIDE MONONITRATE 30 MG TAB PO SCH (07:00)
[2016-06-29] MEDS ORDERED: CLOPIDOGREL 75 MG TAB PO SCH (09:00)
== END 2016-06-28 18:19 | disposition home or self-care (01) | DRG 282 ==
LOC: NEPC 10:30 → NEDA 12:23 → INTOOBSV 12:23 → N04A 15:51 → OBSVTOIN 06-27 14:55
PROVIDERS: ADMIT Family Medicine; ATTEND Family Medicine
PROC: B211YZZ Fluoroscopy of Multiple Coronary Arteries using Other Contrast (ICD-10-PCS; 2016-06-28)
PROC: 4A033BC Measurement of Arterial Pressure, Coronary, Percutaneous Approach (ICD-10-PCS; 2016-06-28)
PROC: 4A023N7 Measurement of Cardiac Sampling and Pressure, Left Heart, Percutaneous Approach (ICD-10-PCS; principal; 2016-06-28 07:30)
DX: I21.4 Non-ST elevation (NSTEMI) myocardial infarction (principal); E11.9 Type 2 diabetes mellitus without complications; F17.210 Nicotine dependence, cigarettes, uncomplicated; F41.0 Panic disorder [episodic paroxysmal anxiety]; E78.2 Mixed hyperlipidemia; I25.10 Atherosclerotic heart disease of native coronary artery without angina pectoris; Z82.49 Family history of ischemic heart disease and other diseases of the circulatory system
CPT/HCPCS: 71010; 71275; 76705; 80048; 80053; 80061; 82550; 82552; 82948; 83690; 83735; 84484; 85025; 85027; 85379; 85610; 85730; 93005; 93454; 93571; 96360; C1769; C1887; C1893; G0378; J0153; J1644; J1650; J2250; J3010; J7030; J7040; Q9967

== ENCOUNTER 2016-07-29 17:50 | Emergency (ER) | payer OTHER ==
[~2016-07-29] VITALS: Ht 157.5 cm; Wt 66.0 kg
[~2016-07-29 17:50] MED LIST changes: +ASPI81TA11 PO; +ISOS30TA3 PO; +LIPI40TA PO; -MELO7.5 PO; +METO25TA3 PO; +PLAV75TA29 PO
[2016-07-29 17:53] VITALS: BP 139/62; PULSE 17; PULSE 79; RESP 17; TEMP 98.2; O2SAT 99
[2016-07-29 18:05] VITALS: BP 126/79; PULSE 90; RESP 18; O2SAT 91
[2016-07-29] MEDS ORDERED: SODIUM CHLORIDE 0.9% FLUSH 10 ML FLUSH IVF PRN (18:45)
--- NOTE | 2016-07-29 18:47 | PD ---
HPI Chief Complaint: Chest Pain Time Seen by Provider: 18:47 Travel History International Travel<30 days: No Contact w/Intl Traveler<30days: No Traveled to known affect area: No History of Present Illness HPI 60-year-old female presents to the emergency department for evaluation of chest pain that radiates to the back. Patient states she had a CT scan done today at [facility] ordered imaging for her cable television program director, Dr. Lopez. She states the sharp chest pain started after. Patient also states that she feels like her left breast is being twisted and has pain the reason the left shoulder blade. She states that this is atypical of her usual chest pain. Patient had recent cardiac catheterization done in June after she was admitted for an STEMI. Patient had CT coronary angiogram which was negative for PE at that time. Her troponin was elevated at 0.07, 0.81, 0.36. She is currently on metoprolol, Plavix, aspirin, atorvastatin. Patient had a cardiac catheterization done on June 28 which showed moderate branch vessel coronary artery disease, normal left sided filling pressures. The patient did not receive a stent and the plan was to be continued on aggressive medical therapy with aspirin and Plavix, statin, beta nick. She states that after her CT scan today she started with the chest pain. She called her cable television program director, Dr. Lopez, who instructed her to go to the emergency department. PFSH Past Medical History Hx Anticoagulant Therapy: Yes (PLAVIX) Asthma: No Anxiety: No Depression: No Heart Rhythm Problems: No Cancer: No Cardiac Catheterization: No Cardiovascular Problems: Yes ([place] 07/11) High Cholesterol: Yes Chemotherapy: No Chest Pain: No Congestive Heart Failure: No COPD: No Coronary Artery Disease: Yes Diabetes: Yes Patient Takes Glucophage: No Diminished Hearing: No Endocrine: No Gastrointestinal Disorders: No Genitourinary: No Hypertension: No Immune Disorder: No Musculoskeletal: No Neurologic: No Psychiatric: No Respiratory: No Myocardial Infarction: Yes (2011) Sleep Apnea: No Tetanus Vaccination: > 5 Years Influenza Vaccination: Yes ?: Not Menopausal: Yes : 4 Para: 2 Miscarriage: 1 : 1 Past Surgical History Section: Yes Coronary Artery Bypass Graft: No Other Surgery: Yes (C SECTION, KNEE SURGERY) Social History Alcohol Use: No Tobacco Use: Yes (1 PPD) Substance Use: No Allergies-Medications (Allergen,Severity, Reaction): Coded Allergies: Benadryl (Verified Allergy, Severe, HIVES, 07/29/16) Penicillin (Verified Allergy, Severe, HIVES, 07/29/16) Vicodin (Verified Allergy, Severe, HIVES, 07/29/16) Buspar (Verified Allergy, Unknown, UNKOWN RXN, 07/29/16) Reported Meds & Prescriptions Reported Meds & Active Scripts Active Lipitor (Atorvastatin Calcium) 40 Mg Tab 80 Mg PO HS Metoprolol Tartrate 25 Mg Tab 25 Mg PO Q12HR Plavix (Clopidogrel Bisulfate) 75 Mg Tab 75 Mg PO DAILY Aspirin EC (Aspirin) 81 Mg Tabdr 81 Mg PO DAILY Review of Systems Except as stated in HPI: all other systems reviewed are Neg Physical Exam Narrative GENERAL: Well-nourished, well-developed female patient, afebrile. SKIN: Focused skin assessment warm/dry. HEAD: Normocephalic. Atraumatic EYES: No scleral icterus. No injection or drainage. NECK: Supple, trachea midline. No JVD or lymphadenopathy. CARDIOVASCULAR: Regular rate and rhythm without murmurs, gallops, or rubs. RESPIRATORY: Breath sounds equal bilaterally. No accessory muscle use. Lungs sounds are clear to auscultation. GASTROINTESTINAL: Abdomen soft, non-tender, nondistended. MUSCULOSKELETAL: No cyanosis, or edema. BACK: Nontender without obvious deformity. No CVA tenderness. Data Data Last Documented VS Vital Signs Date Time Temp Pulse Resp B/P Pulse Ox O2 Delivery O2 Flow Rate FiO2 07/29/16 19:16 75 18 96 Nasal Cannula 2 07/29/16 19:15 112/63 07/29/16 17:53 98.2 Orders Electrocardiogram (07/29/16 ) Electrocardiogram (07/29/16 18:45) Basic Metabolic Panel (Bmp) (07/29/16 18:45) Ckmb (Isoenzyme) Profile (07/29/16 18:45) Complete Blood Count With Diff (07/29/16 18:45) Magnesium (Mg) (07/29/16 18:45) Prothrombin Time / Inr (Pt) (07/29/16 18:45) Act Partial Throm Time (Ptt) (07/29/16 18:45) Troponin I (07/29/16 18:45) Chest, Single Ap (07/29/16 18:45) Ecg Monitoring (07/29/16 18:45) Bilateral Bp Monitoring (07/29/16 18:45) Iv Access Insert/Monitor (07/29/16 18:45) Oximetry (07/29/16 18:45) Oxygen Administration (07/29/16 18:45) Sodium Chloride 0.9% Flush (Ns Flush) (07/29/16 18:45) Labs Laboratory Tests Test 07/29/16 18:45 White Blood Count 10.7 TH/MM3 Red Blood Count 4.90 MIL/MM3 Hemoglobin 13.9 GM/DL Hematocrit 42.5 % Mean Corpuscular Volume 86.6 FL Mean Corpuscular Hemoglobin 28.4 PG Mean Corpuscular Hemoglobin 32.8 % Concent Red Cell Distribution Width 14.2 % Platelet Count 241 TH/MM3 Mean Platelet Volume 9.1 FL Neutrophils (%) (Auto) 63.2 % Lymphocytes (%) (Auto) 28.8 % Monocytes (%) (Auto) 5.9 % Eosinophils (%) (Auto) 1.6 % Basophils (%) (Auto) 0.5 % Neutrophils # (Auto) 6.8 TH/MM3 Lymphocytes # (Auto) 3.1 TH/MM3 Monocytes # (Auto) 0.6 TH/MM3 Eosinophils # (Auto) 0.2 TH/MM3 Basophils # (Auto) 0.1 TH/MM3 CBC Comment DIFF FINAL Differential Comment Prothrombin Time 9.9 SEC Prothromb Time International 0.9 RATIO Ratio Activated Partial 27.3 SEC Thromboplast Time Sodium Level 140 MEQ/L Potassium Level 4.0 MEQ/L Chloride Level 106 MEQ/L Carbon Dioxide Level 24.8 MEQ/L Anion Gap 9 MEQ/L Blood Urea Nitrogen 12 MG/DL Creatinine 0.83 MG/DL Estimat Glomerular Filtration 71 ML/MIN Rate Random Glucose 103 MG/DL Calcium Level 9.3 MG/DL Magnesium Level 2.2 MG/DL Total Creatine Kinase 86 U/L Troponin I LESS THAN 0.02 NG/ML MDM Medical Decision Making Medical Screen Exam Complete: Yes Emergency Medical Condition: Yes Medical Record Reviewed: Yes Interpretation(s) chest x-ray - CONCLUSION: No evidence of acute cardiopulmonary disease. Differential Diagnosis ACS versus chest wall pain versus CAD Narrative Course 60-year-old female presents to the emergency department for evaluation of chest pain after having a CT scan today and today a [place] [facility]. She states that her cable television program director told her to come the emergency department. EKG, CBC, BMP , CK, troponin, magnesium, PTT, PTT/INR, chest x-ray ordered and pending. Patient had a CTA of the chest done on July 28, 2016. Patient no evidence of pulmonary embolism and no acute findings. EKG shows sinus rhythm, heart rate 81, no acute ST changes. CBC is unremarkable. BMP is unremarkable. CK is 86. Troponin is less than 0.02. Magnesium is 2.2. Coags are unremarkable. Chest x-ray shows no evidence of cardiopulmonary disease. My attending physician, Dr. Mccall, saw patient as well. Work up is unremarkable and patient had recent cardiac catheterization. She is to follow up with Dr. Lopez. She is to return for any acute, worsening of symptoms. Diagnosis Primary Impression: Atypical chest pain Referrals: Alvaro Lopez MD call for appointment Patient Instructions: Chest Pain (ED), General Instructions Additional Instructions: Follow up with Dr. Lopez. Return to the emergency department for any acute, worsening of symptoms. Med/Other Pt SpecificInfo: No Change to Meds Disposition: 01 DISCHARGE HOME Condition: Stable Radha KingP July 29, 2016 18:47
[2016-07-29 19:15] VITALS: BP 112/63; PULSE 76; RESP 17; O2SAT 95
[2016-07-29 19:15] LABS: AUTOMATED NEUTROPHIL # 6.8 TH/MM3 (1.8-7.7); BASOPHIL # 0.1 TH/MM3 (0-0.2); BASOPHIL % 0.5 % (0.0-2.0); EOSINOPHIL # 0.2 TH/MM3 (0-0.4); EOSINOPHIL % 1.6 % (0.0-4.0); HEMATOCRIT 42.5 % (35.0-46.0); HEMO FLAGS DIFF FINAL; LYMPH % 28.8 % (9.0-44.0); LYMPHOCYTE # 3.1 TH/MM3 (1.0-4.8); MEAN CELL VOLUME 86.6 FL (80.0-100.0); MEAN CORPUSCULAR HEMOGLOBIN 28.4 PG (27.0-34.0); MEAN CORPUSCULAR HGB CONC 32.8 % (32.0-36.0); MONO % 5.9 % (0.0-8.0); NEUT % 63.2 % (16.0-70.0); PLATELET COUNT 241 TH/MM3 (150-450); RED CELL DISTRIBUTION WIDTH 14.2 % (11.6-17.2); WHITE BLOOD COUNT 10.7 TH/MM3 (4.0-11.0)
[2016-07-29 19:27] LABS: APTT (PATIENT) 27.3 SEC (24.3-30.1); INTERNATIONAL NORMALIZED RATIO 0.9 RATIO; PROTHROMBIN TIME - PATIENT 9.9 SEC (9.8-11.6)
[2016-07-29 19:41] LABS: ANION GAP 9 MEQ/L (5-15); BICARBONATE 24.8 MEQ/L (21.0-32.0); BLOOD UREA NITROGEN 12 MG/DL (7-18); CHLORIDE 106 MEQ/L (98-107); GLOMERULAR FILTRATION RATE 71 ML/MIN (>89); MAGNESIUM 2.2 MG/DL (1.5-2.5); SODIUM (NA) 140 MEQ/L (136-145)
[2016-07-29 19:48] LABS: CREATINE KINASE 86 U/L (26-192)
--- NOTE | 2016-07-29 20:36 | RADRPT ---
EXAM DATE/TIME: 07/29/2016 19:10 [facility] COMPARISON: No previous studies available for comparison. INDICATIONS : Chest pain and shortness of breath. MEDICAL HISTORY : None. SURGICAL HISTORY : None. ENCOUNTER: Subsequent ACUITY: 1 week PAIN SCORE: 4/10 LOCATION: chest FINDINGS: A single view of the chest demonstrates the lungs to be symmetrically aerated without evidence of mas s, infiltrate or effusion. The cardiomediastinal contours are unremarkable. Osseous structures are intact. CONCLUSION: No evidence of acute cardiopulmonary disease. Eamon Lujan MD on July 29, 2016 at 20:34 Board Certified Radiologist. This report was verified electronically.
--- NOTE | 2016-07-29 20:37 | PD ---
Data Data Last Documented VS Vital Signs Date Time Temp Pulse Resp B/P Pulse Ox O2 Delivery O2 Flow Rate FiO2 07/29/16 19:16 75 18 96 Nasal Cannula 2 07/29/16 19:15 112/63 07/29/16 17:53 98.2 Orders Electrocardiogram (07/29/16 ) Electrocardiogram (07/29/16 18:45) Basic Metabolic Panel (Bmp) (07/29/16 18:45) Ckmb (Isoenzyme) Profile (07/29/16 18:45) Complete Blood Count With Diff (07/29/16 18:45) Magnesium (Mg) (07/29/16 18:45) Prothrombin Time / Inr (Pt) (07/29/16 18:45) Act Partial Throm Time (Ptt) (07/29/16 18:45) Troponin I (07/29/16 18:45) Chest, Single Ap (07/29/16 18:45) Ecg Monitoring (07/29/16 18:45) Bilateral Bp Monitoring (07/29/16 18:45) Iv Access Insert/Monitor (07/29/16 18:45) Oximetry (07/29/16 18:45) Oxygen Administration (07/29/16 18:45) Sodium Chloride 0.9% Flush (Ns Flush) (07/29/16 18:45) Labs Laboratory Tests Test 07/29/16 18:45 White Blood Count 10.7 TH/MM3 Red Blood Count 4.90 MIL/MM3 Hemoglobin 13.9 GM/DL Hematocrit 42.5 % Mean Corpuscular Volume 86.6 FL Mean Corpuscular Hemoglobin 28.4 PG Mean Corpuscular Hemoglobin 32.8 % Concent Red Cell Distribution Width 14.2 % Platelet Count 241 TH/MM3 Mean Platelet Volume 9.1 FL Neutrophils (%) (Auto) 63.2 % Lymphocytes (%) (Auto) 28.8 % Monocytes (%) (Auto) 5.9 % Eosinophils (%) (Auto) 1.6 % Basophils (%) (Auto) 0.5 % Neutrophils # (Auto) 6.8 TH/MM3 Lymphocytes # (Auto) 3.1 TH/MM3 Monocytes # (Auto) 0.6 TH/MM3 Eosinophils # (Auto) 0.2 TH/MM3 Basophils # (Auto) 0.1 TH/MM3 CBC Comment DIFF FINAL Differential Comment Prothrombin Time 9.9 SEC Prothromb Time International 0.9 RATIO Ratio Activated Partial 27.3 SEC Thromboplast Time Sodium Level 140 MEQ/L Potassium Level 4.0 MEQ/L Chloride Level 106 MEQ/L Carbon Dioxide Level 24.8 MEQ/L Anion Gap 9 MEQ/L Blood Urea Nitrogen 12 MG/DL Creatinine 0.83 MG/DL Estimat Glomerular Filtration 71 ML/MIN Rate Random Glucose 103 MG/DL Calcium Level 9.3 MG/DL Magnesium Level 2.2 MG/DL Total Creatine Kinase 86 U/L Troponin I LESS THAN 0.02 NG/ML [facility] Supervised Visit with DANNI: Yes Narrative Course The history, exam, and medical decision-making in the associated mid-level provider note were completed with my assistance. I reviewed and agree with the findings presented. I attest that I had a [id number] encounter with the patient on the same day, and personally performed and documented my assessment and findings in the medical record. *My assessment and Findings: So 60 year-old woman history of intermittent chest pain ongoing for the past month or so. She was admitted to the hospital where she had an elevated troponin of 0.8 and had a heart catheter without any hemodynamically significant stenosis. Etiology is unclear. She's had intermittent symptoms since then. She had a CT pulmonary angiogram yesterday that was negative at [facility]. She had the chest pain again today and called and spoke to Dr. Lopez office who referred her to the emergency department. Pain is left-sided, intermittent, no clear exacerbating or alleviating factors. I wonder she may have had mild pericarditis as an etiology of her symptoms. Nonetheless her repeat workup here is unremarkable. This point I think she is safe for discharge for outpatient follow-up with her refuge worker regarding this persistent atypical chest pain. Diagnosis Primary Impression: Atypical chest pain Referrals: Alvaro Lopez MD call for appointment Patient Instructions: General Instructions, Chest Pain (ED) Additional Instruction: Follow up with Dr. Lopez. Return to the emergency department for any acute, worsening of symptoms. Disposition: 01 DISCHARGE HOME Condition: Stable Prasanth Mccall MD July 29, 2016 20:37
[2016-07-29 20:45] VITALS: BP 121/69; PULSE 73; RESP 17; O2SAT 95
--- NOTE | 2016-07-30 10:07 | EKG ---
Date Performed: 07/29/2016 Time Performed: 18:07:56 PTAGE: 60 years EKG: Sinus rhythm POSSIBLE RIGHT VENTRICULAR CONDUCTION DELAY BORDERLINE ECG PREVIOUS TRACING : 06/26/2016 23.24 DOCTOR: Cece Noonan Interpretating Date/Time 07/30/2016 10:07:35
== END 2016-07-29 21:38 | disposition home or self-care (01) ==
LOC: NEPC 17:50
DX: R07.89 Other chest pain (principal); I25.10 Atherosclerotic heart disease of native coronary artery without angina pectoris; I25.2 Old myocardial infarction; F17.200 Nicotine dependence, unspecified, uncomplicated; Z79.899 Other long term (current) drug therapy
CPT/HCPCS: 71010; 80048; 82550; 83735; 84484; 85025; 85610; 85730; 93005

== ENCOUNTER 2016-11-11 12:12 | Observation (INO) | payer OTHER ==
[~2016-11-11] VITALS: Ht 157.5 cm; Wt 65.9 kg
[2016-11-11] VITALS (12 sets, daily range): BP systolic 83–133; BP diastolic 57–69; PULSE 69–92; RESP 16–18; TEMP 97.9–98.3; O2SAT 92–99
[~2016-11-11 12:12] MED LIST changes: -ISOS30TA3 PO
--- NOTE | 2016-11-11 12:49 | PD ---
HPI Chief Complaint: Chest Pain Time Seen by Provider: 12:44 Travel History International Travel<30 days: No Contact w/Intl Traveler<30days: No Traveled to known affect area: No History of Present Illness HPI Patient is a 61-year-old female who has a history of an STEMI presents emergency department for evaluation of epigastric pain discomfort and indigestion. Patient states it feels very similar to last time she was having a heart attack. She states that in June she was admitted under Dr. 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 States symptoms have returned today. She did not try anything prior to arrival here. Endorses mild nausea without vomiting denies any shortness of breath. She states the pain is burning/tight in the middle of her chest without radiation. Onset was yesterday. PFSH Past Medical History Hx Anticoagulant Therapy: Yes (PLAVIX) Asthma: No Anxiety: No Depression: No Heart Rhythm Problems: No Cancer: No Cardiac Catheterization: No Cardiovascular Problems: Yes ([place], HTN) High Cholesterol: Yes Chemotherapy: No Chest Pain: No Congestive Heart Failure: No COPD: No Coronary Artery Disease: Yes Diabetes: Yes (DIET-CONTROLLED) Diminished Hearing: No Endocrine: No Gastrointestinal Disorders: No Genitourinary: No Hypertension: No Immune Disorder: No Musculoskeletal: No Neurologic: No Psychiatric: No Respiratory: No Myocardial Infarction: Yes (2011) Sleep Apnea: No ?: Not Menopausal: Yes : 4 Para: 2 Miscarriage: 1 : 1 Past Surgical History Section: Yes Coronary Artery Bypass Graft: No Other Surgery: Yes (C SECTION, KNEE SURGERY) Social History Alcohol Use: No Tobacco Use: Yes (1 PPD) Substance Use: No Allergies-Medications (Allergen,Severity, Reaction): Coded Allergies: acetaminophen (Unverified Allergy, Severe, HIVES, 11/11/16) diphenhydramine (Unverified Allergy, Severe, HIVES, 11/11/16) hydrocodone (Unverified Allergy, Severe, HIVES, 11/11/16) penicillin G (Unverified Allergy, Severe, HIVES, 11/11/16) buspirone (Unverified Allergy, Unknown, UNKOWN RXN, 11/11/16) Reported Meds & Prescriptions Reported Meds & Active Scripts Active Lipitor (Atorvastatin Calcium) 40 Mg Tab 80 Mg PO HS Metoprolol Tartrate 25 Mg Tab 25 Mg PO Q12HR Plavix (Clopidogrel Bisulfate) 75 Mg Tab 75 Mg PO DAILY Aspirin EC (Aspirin) 81 Mg Tabdr 81 Mg PO DAILY Review of Systems Except as stated in HPI: all other systems reviewed are Neg Physical Exam Narrative GENERAL: Well-developed well-nourished no obvious distress SKIN: Focused skin assessment warm/dry. HEAD: Atraumatic. Normocephalic. EYES: Pupils equal and round. No scleral icterus. No injection or drainage. ENT: No nasal bleeding or discharge. Mucous membranes pink and moist. NECK: Trachea midline. No JVD. CARDIOVASCULAR: Regular rate and rhythm. No murmur appreciated. 2+ but equal pulses in all 4 extremity's. RESPIRATORY: No accessory muscle use. Clear to auscultation. Breath sounds equal bilaterally. GASTROINTESTINAL: Abdomen soft, non-tender, nondistended. Hepatic and splenic margins not palpable. MUSCULOSKELETAL: No obvious deformities. No clubbing. No cyanosis. No edema. NEUROLOGICAL: Awake and alert. No obvious cranial nerve deficits. Motor grossly within normal limits. Normal speech. PSYCHIATRIC: Appropriate mood and affect; insight and judgment normal. Data Data Last Documented VS Vital Signs Date Time Temp Pulse Resp B/P Pulse Ox O2 Delivery O2 Flow Rate FiO2 11/11/16 13:51 95/58 11/11/16 13:01 99 Room Air 11/11/16 12:55 97.9 92 18 Orders Electrocardiogram (11/11/16 ) Ckmb (Isoenzyme) Profile (11/11/16 12:47) Complete Blood Count With Diff (11/11/16 12:47) Comprehensive Metabolic Panel (11/11/16 12:47) Magnesium (Mg) (11/11/16 12:47) Prothrombin Time / Inr (Pt) (11/11/16 12:47) Act Partial Throm Time (Ptt) (11/11/16 12:47) Troponin I (11/11/16 12:47) Chest, Single Ap (11/11/16 12:47) Ecg Monitoring (11/11/16 12:47) Iv Access Insert/Monitor (11/11/16 12:47) Oximetry (11/11/16 12:47) Oxygen Administration (11/11/16 12:47) Aspirin Chew (Aspirin Chew) (11/11/16 13:00) Sodium Chloride 0.9% Flush (Ns Flush) (11/11/16 13:00) Nitroglycerin Sl (Nitrostat Sl) (11/11/16 13:00) Sodium Chlorid 0.9% 500 Ml Inj (Ns 500 M (11/11/16 14:15) Al-Mag Hy-Si 40-40-4 Mg/Ml Liq (Mag-Al P (11/11/16 14:15) Admit Order (Ed Use Only) (11/11/16 ) Labs Laboratory Tests Test 11/11/16 13:05 White Blood Count 10.5 TH/MM3 Red Blood Count 4.93 MIL/MM3 Hemoglobin 14.2 GM/DL Hematocrit 43.1 % Mean Corpuscular Volume 87.4 FL Mean Corpuscular Hemoglobin 28.8 PG Mean Corpuscular Hemoglobin 33.0 % Concent Red Cell Distribution Width 14.6 % Platelet Count 282 TH/MM3 Mean Platelet Volume 8.7 FL Neutrophils (%) (Auto) 67.2 % Lymphocytes (%) (Auto) 25.5 % Monocytes (%) (Auto) 5.6 % Eosinophils (%) (Auto) 1.2 % Basophils (%) (Auto) 0.5 % Neutrophils # (Auto) 7.0 TH/MM3 Lymphocytes # (Auto) 2.7 TH/MM3 Monocytes # (Auto) 0.6 TH/MM3 Eosinophils # (Auto) 0.1 TH/MM3 Basophils # (Auto) 0.1 TH/MM3 CBC Comment DIFF FINAL Differential Comment Prothrombin Time 10.0 SEC Prothromb Time International 0.9 RATIO Ratio Activated Partial 28.3 SEC Thromboplast Time Sodium Level 140 MEQ/L Potassium Level 3.7 MEQ/L Chloride Level 107 MEQ/L Carbon Dioxide Level 26.1 MEQ/L Anion Gap 7 MEQ/L Blood Urea Nitrogen 10 MG/DL Creatinine 0.71 MG/DL Estimat Glomerular Filtration 84 ML/MIN Rate Random Glucose 122 MG/DL Calcium Level 9.2 MG/DL Magnesium Level 2.2 MG/DL Total Bilirubin 0.2 MG/DL Aspartate Amino Transf 14 U/L (AST/SGOT) Alanine Aminotransferase 26 U/L (ALT/SGPT) Alkaline Phosphatase 102 U/L Total Creatine Kinase 85 U/L Troponin I LESS THAN 0.02 NG/ML Total Protein 7.2 GM/DL Albumin 3.5 GM/DL MDM Medical Decision Making Medical Screen Exam Complete: Yes Emergency Medical Condition: Yes Interpretation(s) EKG shows normal sinus rhythm normal axis normal R-wave progression. No concerning ST segment changes. Intervals within normal limits. This normal EKG. Differential Diagnosis ACS, AMI, GERD, pneumonia, chest wall pain. Narrative Course Patient roomed emergency department, appears well and comfortable. Was given aspirin and nitroglycerin. States he has been relieved her chest discomfort but she still had a little bit of indigestion afterwards. Initial EKG troponin negative. Patient certainly is high risk given the history of an STEMI and the fact that she is high blood pressure high cholesterol and a smoker. She will be admitted chest pain center. Diagnosis Primary Impression: Chest pain Admitting Information Admitting Physician Requests: Observation Condition: Stable Cristobal Lieberman MD Nov 11, 2016 12:49
[2016-11-11] MEDS ORDERED: ASPIRIN 81 MG CHEW TAB PO ONE (13:00)
[2016-11-11] MEDS ORDERED: SODIUM CHLORIDE 0.9% FLUSH 10 ML FLUSH IVF PRN (13:00)
[2016-11-11] MEDS: NITROGLYCERIN 0.4 MG SL 25 TABS/BTL SL SCH ×3 (13:10→13:35)
--- NOTE | 2016-11-11 13:15 | RADRPT ---
EXAM DATE/TIME: 11/11/2016 12:49 [facility] COMPARISON: CHEST SINGLE AP, July 29, 2016, 19:10. INDICATIONS : Chest pain and shortness of breath. MEDICAL HISTORY : Hypercholesterolemia. CAD. Heart attack. SURGICAL HISTORY : section. Foreign body removal from right knee, straight pins. ENCOUNTER: Initial ACUITY: 1 day PAIN SCORE: 0/10 LOCATION: Bilateral chest FINDINGS: A single view of the chest demonstrates the lungs to be symmetrically aerated without evidence of mas s, infiltrate or effusion. The cardiomediastinal contours are unremarkable. Osseous structures are intact. CONCLUSION: No acute disease. Yuan Villalobos MD on November 11, 2016 at 13:10 Board Certified Radiologist. This report was verified electronically.
[2016-11-11 13:25] LABS: BASOPHIL # 0.1 TH/MM3 (0-0.2); BASOPHIL % 0.5 % (0.0-2.0); EOSINOPHIL # 0.1 TH/MM3 (0-0.4); EOSINOPHIL % 1.2 % (0.0-4.0); HEMATOCRIT 43.1 % (35.0-46.0); HEMO FLAGS DIFF FINAL; LYMPH % 25.5 % (9.0-44.0); LYMPHOCYTE # 2.7 TH/MM3 (1.0-4.8); MEAN CELL VOLUME 87.4 FL (80.0-100.0); MEAN CORPUSCULAR HEMOGLOBIN 28.8 PG (27.0-34.0); MONO % 5.6 % (0.0-8.0); NEUT % 67.2 % (16.0-70.0); PLATELET COUNT 282 TH/MM3 (150-450); RED BLOOD COUNT 4.93 MIL/MM3 (4.00-5.30); RED CELL DISTRIBUTION WIDTH 14.6 % (11.6-17.2); WHITE BLOOD COUNT 10.5 TH/MM3 (4.0-11.0)
[2016-11-11 13:39] LABS: ANION GAP 7 MEQ/L (5-15); AST (GOT) 14 U/L (15-37); BICARBONATE 26.1 MEQ/L (21.0-32.0); BLOOD UREA NITROGEN 10 MG/DL (7-18); CHLORIDE 107 MEQ/L (98-107); GLOMERULAR FILTRATION RATE 84 ML/MIN (>89); MAGNESIUM 2.2 MG/DL (1.5-2.5); POTASSIUM 3.7 MEQ/L (3.5-5.1); SODIUM (NA) 140 MEQ/L (136-145)
[2016-11-11 13:43] LABS: APTT (PATIENT) 28.3 SEC (24.3-30.1); INTERNATIONAL NORMALIZED RATIO 0.9 RATIO
[2016-11-11 13:44] LABS: ALKALINE PHOSPHATASE 102 U/L (45-117); ALT (GPT) 26 U/L (10-53); TOTAL BILIRUBIN ADULT 0.2 MG/DL (0.2-1.0)
[2016-11-11 13:57] LABS: CREATINE KINASE 85 U/L (26-192)
[2016-11-11] MEDS ORDERED: ALUMINUM/MAGNESIUM/SIMETH 30 ML CUP PO ONE (14:15)
[2016-11-11] MEDS ORDERED: SODIUM CHLORID 0.9% 500 ML INJ 500 ML IV ONE ×2 (14:15→16:15)
[2016-11-11] MEDS ORDERED: ALPRAZolam 0.25 MG TAB PO PRN (16:00)
[2016-11-11] MEDS ORDERED: ONDANSETRON HCL 4 MG/2 ML VIAL IV PRN (16:00)
[2016-11-11] MEDS ORDERED: MORPHINE SULFATE 8 MG/ML INJ IV PUSH PRN (16:00)
[2016-11-11] MEDS ORDERED: SODIUM CHLORIDE 0.9% FLUSH 5 ML FLUSH IVF PRN (16:00)
--- NOTE | 2016-11-11 16:20 | HHI.HP ---
HPI Primary Care Physician Isha Arevalo MD Chief Complaint Chest pain History of Present Illness Ms. Retana is a 61-year-old male patient with a known medical history of NC, CAD, hyperlipidemia, tobacco abuse and diabetes who presented to the ED with complaints of chest pain. Patient states that the pain began 3 days ago, has been intermittent for 1-2 hours at a time, occurring roughly 4 times, characterized by a pressure and burning pain. Denies any radiation. Does admit to associated diaphoresis and nausea. Denies any shortness of breath. States she does have trouble with indigestion. No reproducible pain on exam. Last cardiac catheterization was performed due to a NSTEMI in June of this year by Dr. Seo with moderate branch vessel CAD. At that time aggressive medical therapy with aspirin, Plavix, statin and beta nick were recommended. 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 Lopez and last seen 1 month ago. Review of Systems Consitutional: COMPLAINS OF: Fever, Chills Cardiovascular: COMPLAINS OF: See HPI, Chest pain Gastrointestinal: COMPLAINS OF: Nausea Past Family Social History Allergies: Coded Allergies: acetaminophen (Unverified Allergy, Severe, HIVES, 11/11/16) diphenhydramine (Unverified Allergy, Severe, HIVES, 11/11/16) hydrocodone (Unverified Allergy, Severe, HIVES, 11/11/16) penicillin G (Unverified Allergy, Severe, HIVES, 11/11/16) buspirone (Unverified Allergy, Unknown, UNKOWN RXN, 11/11/16) Past Medical History History of NC CAD Hypertension Hyperlipidemia Tobacco abuse Diabetes, diet controlled Past Surgical History Knee surgery Reported Medications Reported Meds & Active Scripts Active Lipitor (Atorvastatin Calcium) 40 Mg Tab 80 Mg PO HS Metoprolol Tartrate 25 Mg Tab 25 Mg PO Q12HR Plavix (Clopidogrel Bisulfate) 75 Mg Tab 75 Mg PO DAILY Aspirin EC (Aspirin) 81 Mg Tabdr 81 Mg PO DAILY Active Ordered Medications Current Medications Medications (Trade) Dose Ordered Sig/Yvette Route Start Time Stop Time Status Last Admin (NS Flush) 2 ml UNSCH PRN IVF 11/11/16 13:00 Family History Maternal medical history significant for CABG x 3, and CHF. Patient's brother had a CABG x 3 in his 40's. Social History Patient admits to current tobacco use, 1 ppd. Denies any alcohol use. Denies any illicit drug use. Physical Exam Vital Signs Vital Signs Date Time Temp Pulse Resp B/P Pulse Ox O2 Delivery O2 Flow Rate FiO2 11/11/16 13:51 95/58 11/11/16 13:47 99/57 11/11/16 13:44 83/58 11/11/16 13:33 112/62 11/11/16 13:01 99 Room Air 11/11/16 13:00 100 Room Air 11/11/16 12:55 97.9 92 18 121/65 99 Room Air 11/11/16 12:14 98.2 81 16 133/69 98 Physical Exam GENERAL: Well-developed, well-nourished female patient lying in bed comfortably. SKIN: Warm and dry. No rash. HEAD: Atraumatic. Normocephalic. EYES: Pupils equal and round. No scleral icterus. No injection or drainage. ENT: No nasal bleeding or discharge. Mucous membranes pink and moist. NECK: Trachea midline. No JVD. CARDIOVASCULAR: Regular rate and rhythm. No murmur appreciated. RESPIRATORY: No accessory muscle use. Clear to auscultation. Breath sounds equal bilaterally. GASTROINTESTINAL: Abdomen soft, non-tender, nondistended. MUSCULOSKELETAL: Extremities without clubbing, cyanosis, or edema. No obvious deformities. NEUROLOGICAL: Awake and alert. No obvious cranial nerve deficits. Motor grossly within normal limits. Five out of 5 muscle strength in the arms and legs. Normal speech. PSYCHIATRIC: Appropriate mood and affect; insight and judgment normal. Laboratory Laboratory Tests Test 11/11/16 13:05 White Blood Count 10.5 Red Blood Count 4.93 Hemoglobin 14.2 Hematocrit 43.1 Mean Corpuscular Volume 87.4 Mean Corpuscular Hemoglobin 28.8 Mean Corpuscular Hemoglobin 33.0 Concent Red Cell Distribution Width 14.6 Platelet Count 282 Mean Platelet Volume 8.7 Neutrophils (%) (Auto) 67.2 Lymphocytes (%) (Auto) 25.5 Monocytes (%) (Auto) 5.6 Eosinophils (%) (Auto) 1.2 Basophils (%) (Auto) 0.5 Neutrophils # (Auto) 7.0 Lymphocytes # (Auto) 2.7 Monocytes # (Auto) 0.6 Eosinophils # (Auto) 0.1 Basophils # (Auto) 0.1 CBC Comment DIFF FINAL Differential Comment Prothrombin Time 10.0 Prothromb Time International 0.9 Ratio Activated Partial 28.3 Thromboplast Time Sodium Level 140 Potassium Level 3.7 Chloride Level 107 Carbon Dioxide Level 26.1 Anion Gap 7 Blood Urea Nitrogen 10 Creatinine 0.71 Estimat Glomerular Filtration 84 Rate Random Glucose 122 Calcium Level 9.2 Magnesium Level 2.2 Total Bilirubin 0.2 Aspartate Amino Transf 14 (AST/SGOT) Alanine Aminotransferase 26 (ALT/SGPT) Alkaline Phosphatase 102 Total Creatine Kinase 85 Troponin I LESS THAN 0.02 Total Protein 7.2 Albumin 3.5 Result Diagram: 11/11/16 1305 11/11/16 1305 Imaging Last 48 hours Impressions Chest X-Ray 11/11/16 1247 Signed Impressions: Service Date/Time: Friday, November 11, 2016 12:49 - CONCLUSION: No acute disease. Yuan Villalobos MD Assessment and Plan Assessment and Plan * Chest pain: Admitted to the chest pain center. Serial EKGs and serial troponins ordered for ruling out purposes. CXR unremarkable. Patient will be seen by Dr. Cavazos in the chest pain center and possibly undergo a Lexiscan for tomorrow am. Will be ruled out for any presence of ischemia. Further recommendations depending on work-up and evaluation. Control pain, Morphine IV PRN per pain scale. * Hypotension: Will give NS 500 ml bolus x 1. Continue to monitor BP. Hold metoprolol per parameters. * GERD/Indigestion: Protonix 40 mg PO daily. * CAD: Continue aspirin, Plavix and metoprolol. Hold parameters ordered if systolic < 100 or HR <60. * Anxiety: Continue Xanax 0.25 mg PO PRN anxiety. * Tobacco abuse: Encourage cessation. Patient is stable at this time and agreeable to the pain. Kelvin nAg Nov 11, 2016 16:20
[2016-11-11] MEDS: PANTOPRAZOLE SOD 40 MG DELAYED RELEASE TAB PO SCH (17:00)
[2016-11-11 17:57] LABS: CREATINE KINASE 76 U/L (26-192)
[2016-11-11 20:08] LABS: CREATINE KINASE 84 U/L (26-192)
[2016-11-11] MEDS: SODIUM CHLORIDE 0.9% FLUSH 5 ML FLUSH IVF SCH (21:00)
[2016-11-11] MEDS ORDERED: ATORVASTATIN 40 MG TAB PO SCH (21:00)
[2016-11-11] MEDS: METOPROLOL TARTRATE 25 MG TAB PO SCH (21:40)
[2016-11-12 03:46] VITALS: BP 122/62; PULSE 78; RESP 18; TEMP 97.9; O2SAT 92
[2016-11-12 07:29] VITALS: PULSE 77
[2016-11-12 08:22] VITALS: BP 105/65; PULSE 70; RESP 18; TEMP 97.8; O2SAT 95
[2016-11-12] MEDS: SODIUM CHLORIDE 0.9% FLUSH 5 ML FLUSH IVF SCH (09:00)
[2016-11-12] MEDS ORDERED: CLOPIDOGREL 75 MG TAB PO SCH (09:00)
[2016-11-12] MEDS ORDERED: ASPIRIN 325 MG TAB PO SCH (09:00)
[2016-11-12] MEDS: PANTOPRAZOLE SOD 40 MG DELAYED RELEASE TAB PO SCH (09:08)
[2016-11-12] MEDS ORDERED: REGADENOSON INJ 0.4 MG/5 ML SYR ONE (10:31)
--- NOTE | 2016-11-12 11:57 | RADRPT ---
EXAM DATE/TIME: 11/12/2016 10:06 [facility] COMPARISON: No previous studies available for comparison. INDICATIONS : Mid chest pain for three days. Angina. Myocardial infarction. DOSE: 26.5 mCi Tc99m Myoview at stress. 8.6 mCi Tc99m Myoview at rest. 0.4 mg Lexiscan STRESS SYMPTOMS: Shortness of breath and jaw pain. EJECTION FRACTION: 70% MEDICAL HISTORY : Hypertension. Cardiovascular disease Diabetes mellitus type 2. SURGICAL HISTORY : section. ENCOUNTER: Initial ACUITY: 3 days PAIN SCALE: 4/10 LOCATION: Midsternal chest TECHNIQUE: The patient underwent pharmacologic stress with infusion of prescribed dose. Continuous ECG tracing was monitored during stress. Gated SPECT imaging was performed after stress and conventional SPECT i maging was performed at rest. The examination was performed on a SPECT/CT scanner, both attenuation and non-corrected datasets were reviewed. FINDINGS: DISTRIBUTION: The maximum perfused segment at stress is in the anterior and inferior elder. PERFUSION STUDY: The pattern of perfusion at stress is within normal limits. GATED STUDY: There is intact wall motion and thickening without hypokinetic or dyskinetic segments. CONCLUSION: 1. No areas of reversibility to suggest ischemia. 2. Ejection fraction 70%. RISK CATEGORY: Low (<1% Annual Mortality Rate) Dreek Siddiqui MD on November 12, 2016 at 11:53 Board Certified Radiologist. This report was verified electronically.
[2016-11-12 12:13] VITALS: BP 108/62; PULSE 70; RESP 18; TEMP 96.8; O2SAT 95
--- NOTE | 2016-11-12 12:16 | HHI.DCPOC ---
Discharge Care Plan Diagnosis: (1) Chest pain (2) CAD (coronary artery disease), [place] coronary artery (3) DM (diabetes mellitus) (4) Hyperlipidemia (5) Tobacco abuse Goals to Promote Your Health * To prevent worsening of your condition and complications * To maintain your health at the optimal level Directions to Meet Your Goals Take your medications as prescribed Follow your dietary instruction Follow activity as directed Keep your appointments as scheduled Take your immunizations and boosters as scheduled If your symptoms worsen call your PCP, if no PCP go to Urgent Care Center or Emergency Room Smoking is Dangerous to Your Health. Avoid second hand smoke Call the 24-hour hour crisis hotline for domestic abuse at Kelvin Ang Nov 12, 2016 12:16
[2016-11-12] MEDS ORDERED: PROT40TA PO (13:21)
[2016-11-12] MEDS: METOPROLOL TARTRATE 25 MG TAB PO SCH (13:46)
--- NOTE | 2016-11-12 14:58 | TR ---
Date Performed: 11/12/2016 Time Performed: 10:46:57 DOCTOR: Chris Cavazos DRUG LIST: CLINICAL HISTORY: ANGINA REASON FOR TEST: Angina REASON FOR ENDING: OBSERVATION: CONCLUSION: Lexiscan stress test was performed under standard four minute protocol. Radionucl[place] e was injected one minute prior to ending the test. No electrocardiographic abormalities were present to suggest ischemia. Nuclear imaging and interpretation are pending. COMMENTS:
--- NOTE | 2016-11-12 15:00 | EKG ---
Date Performed: 11/11/2016 Time Performed: 17:17:25 PTAGE: 61 years EKG: Sinus rhythm LOW QRS VOLTAGE IN PRECORDIAL LEADS BORDERLINE ECG PREVIOUS TRACING : 11/11/2016 12.33 Since previous tracing, no significant change noted DOCTOR: Chris Cavazos Interpretating Date/Time 11/12/2016 14:59:45
--- NOTE | 2016-11-12 15:00 | EKG ---
Date Performed: 11/11/2016 Time Performed: 19:02:29 PTAGE: 61 years EKG: Sinus rhythm LOW QRS VOLTAGE IN PRECORDIAL LEADS BORDERLINE ECG PREVIOUS TRACING : 11/11/2016 17.17 Since previous tracing, no significant change noted DOCTOR: Chris Cavazos Interpretating Date/Time 11/12/2016 14:58:59
--- NOTE | 2016-11-12 15:01 | EKG ---
Date Performed: 11/11/2016 Time Performed: 12:33:18 PTAGE: 61 years EKG: Sinus rhythm LOW QRS VOLTAGE IN PRECORDIAL LEADS BORDERLINE ECG PREVIOUS TRACING : 07/29/2016 18.07 Since previous tracing, no significant change noted DOCTOR: Chris Cavazos Interpretating Date/Time 11/12/2016 15:01:16
== END 2016-11-12 14:36 | disposition home or self-care (01) ==
LOC: NEPC 12:12 → NEDA 14:34 → NEPGCP 17:30
PROVIDERS: ADMIT Internal Medicine Cardiovascular Disease; ATTEND Internal Medicine Cardiovascular Disease
DX: R07.89 Other chest pain (principal); I25.10 Atherosclerotic heart disease of native coronary artery without angina pectoris; I25.2 Old myocardial infarction; I10 Essential (primary) hypertension; I95.9 Hypotension, unspecified; E78.5 Hyperlipidemia, unspecified; E11.9 Type 2 diabetes mellitus without complications; F41.9 Anxiety disorder, unspecified; K21.9 Gastro-esophageal reflux disease without esophagitis; F17.200 Nicotine dependence, unspecified, uncomplicated; Z79.82 Long term (current) use of aspirin; Z79.899 Other long term (current) drug therapy
CPT/HCPCS: 71010; 78452; 80053; 82550; 83735; 84484; 85025; 85610; 85730; 93005; 93017; 96360; 99285; A9502; G0378; J2785; J7040

== ENCOUNTER → 2017-06-12 | Outpatient (CLI) | payer OTHER ==
[~2017-06-12] MED LIST changes: -ASPI81TA11 PO; +ASPI81TA23 PO; +PANT40TA3 PO; +PROT40TA PO; +WHEA1POW9 PO
[2017-06-12 12:33] LABS: AUTOMATED NEUTROPHIL # 5.7 TH/MM3 (1.8-7.7); BASOPHIL % 0.4 % (0.0-2.0); EOSINOPHIL # 0.1 TH/MM3 (0-0.4); EOSINOPHIL % 1.6 % (0.0-4.0); HEMATOCRIT 40.2 % (35.0-46.0); HEMOGLOBIN 13.2 GM/DL (11.6-15.3); LYMPHOCYTE # 2.8 TH/MM3 (1.0-4.8); MEAN CELL VOLUME 87.9 FL (80.0-100.0); MEAN CORPUSCULAR HEMOGLOBIN 28.8 PG (27.0-34.0); MEAN CORPUSCULAR HGB CONC 32.8 % (32.0-36.0); MEAN PLATELET VOLUME 8.8 FL (7.0-11.0); MONO % 6.5 % (0.0-8.0); MONOCYTE # 0.6 TH/MM3 (0-0.9); NEUT % 61.5 % (16.0-70.0); PLATELET COUNT 280 TH/MM3 (150-450); RED BLOOD COUNT 4.57 MIL/MM3 (4.00-5.30); RED CELL DISTRIBUTION WIDTH 14.4 % (11.6-17.2); WHITE BLOOD COUNT 9.2 TH/MM3 (4.0-11.0)
[2017-06-12 12:39] LABS: PROTHROMBIN TIME - PATIENT 9.7 SEC (9.8-11.6)
[2017-06-12 12:55] LABS: ALBUMIN 3.6 GM/DL (3.4-5.0); BICARBONATE 25.5 MEQ/L (21.0-32.0); BLOOD UREA NITROGEN 12 MG/DL (7-18); CALCIUM 9.6 MG/DL (8.5-10.1); CHLORIDE 109 MEQ/L (98-107); CREATININE 0.75 MG/DL (0.50-1.00); GLOMERULAR FILTRATION RATE 79 ML/MIN (>89); GLUCOSE,FASTING 92 MG/DL (74-99); SODIUM (NA) 142 MEQ/L (136-145)
[2017-06-12 12:57] LABS: ALT (GPT) 20 U/L (10-53); AST (GOT) 10 U/L (15-37)
[2017-06-12 12:59] LABS: ALKALINE PHOSPHATASE 113 U/L (45-117); TOTAL BILIRUBIN ADULT 0.3 MG/DL (0.2-1.0); TOTAL PROTEIN 7.5 GM/DL (6.4-8.2)
[2017-06-12 13:53] LABS: BACTERIA, URINE MANY /hpf; BILIRUBIN, URINE NEG (NEG); BLOOD, URINE NEG (NEG); GLUCOSE,URINE NEG (NEG); KETONE, URINE NEG (NEG); MUCUS URINE FEW /lpf (OCC); NITRITE,URINE POS (NEG); PH, URINE 5.5 (5.0-8.5); SQUAMOUS EPITHELIAL CELL URINE 4 /hpf (0-5); URINE COLOR YELLOW (YELLW/STRAW); URINE LEUKOCYTE ESTERASE TRACE (NEG)
--- NOTE | 2017-06-12 13:53 | RADRPT ---
EXAM DATE/TIME: 06/12/2017 13:11 [facility] COMPARISON: No previous studies available for comparison. INDICATIONS : Evaluate for pneumonia, pneumothorax or communicable disease. Pre op for rectal prolapse surgery 06-19 MEDICAL HISTORY : Hypertension. Diabetes mellitus type II. Myocardial infarction. CAD, SURGICAL HISTORY : section. ENCOUNTER: Initial ACUITY: 1 day PAIN SCORE: 0/10 LOCATION: Bilateral chest FINDINGS: PA and lateral views of the chest demonstrate the lungs to be symmetrically aerated without evidence of mass, infiltrate or effusion. The cardiomediastinal contours are unremarkable. Osseous structure s are intact. CONCLUSION: No acute disease. Noe Ramos MD FACR on June 12, 2017 at 13:51 Board Certified Radiologist. This report was verified electronically.
--- NOTE | 2017-06-13 16:11 | EKG ---
Date Performed: 06/12/2017 Time Performed: 12:23:47 PTAGE: 61 years EKG: Sinus rhythm LOW QRS VOLTAGE IN PRECORDIAL LEADS BORDERLINE ECG PREVIOUS TRACING : 11/11/2016 19.02 No significant change from previous tracing noted. DOCTOR: Oscar Kelly Interpretating Date/Time 06/13/2017 16:09:33
== END ==
LOC: CPRE 11:31
PROVIDERS: ATTEND Colon & Rectal Surgery
DX: Z01.812 Encounter for preprocedural laboratory examination (principal); Z01.811 Encounter for preprocedural respiratory examination; Z01.810 Encounter for preprocedural cardiovascular examination; K62.2 Anal prolapse; B96.1 Klebsiella pneumoniae [K. pneumoniae] as the cause of diseases classified elsewhere; R94.31 Abnormal electrocardiogram [ECG] [EKG]
CPT/HCPCS: 36415; 71046; 80053; 81001; 85025; 85610; 85730; 87077; 87086; 87186; 93005

== ENCOUNTER → 2017-06-19 | Day surgery (SDC) | payer OTHER ==
[~2017-06-19] VITALS: Ht 157.5 cm; Wt 64.1 kg
[~2017-06-19] MED LIST changes: +ACETAMINOPHEN 1000 MG/100 ML 0 ML IV ONE; +ARTIFICIAL TEARS OPTH OINT 3.5 APPLIC/3.5 GM TUBO ONE; +BUPIVACAINE HCL PF 0.5% 30 ML VIAL ONE; +CHLORHEXIDINE GLUCONATE 2 % 1 PACK (2 CLOTHS) TOPICAL PRN; +DEXAMETHASONE SOD PHOS 4 MG/ML VIAL IV ONE; +DO NOT ADM ANY ANTICOAGULANT DRUGS PRN; +FAMOTIDINE 20 MG/2 ML VIAL ONE; +GLYCOPYRROLATE 1 MG/5 ML SYRINGE IV PUSH ONE; +LACTATED RINGER'S 1000 ML IV PRN; +LIDOCAINE HCL 1% PF 5 ML SYRINGE OTHER ONE; +METOPROLOL TARTRATE 25 MG TAB PO PRN; +MIDAZOLAM HCL 2 MG/2 ML VIAL ONE; +MORPHINE SULFATE 2 MG/ML INJ IM PRN; +MORPHINE SULFATE 4 MG/ML INJ ONE; +NEOSTIGMINE 5 MG/5 ML SYRINGE IV PUSH ONE; +ONDANSETRON HCL 4 MG/2 ML VIAL IV ONE; +PHENYLEPH/NS 1000 MCG/10 ML SYR IV ONE; +POVIDONE IODINE 5% (ANTISEPSIS KIT) 4 APPLICATIONS EACH NARE PRN; +PROPOFOL 200 MG/20 ML AMP IV ONE; -PROT40TA PO; +ROCURONIUM INJ 50 MG/5 ML SYRINGE IV PUSH ONE; +SILVER SULFADIAZINE/LIDOCAINE CREAM 60 GM JAR SCH; +SODIUM CHLORID 0.9% 500 ML IV PRN; +ceFAZolin 2 GM PREMIX 50 ML ONE; +metroNIDAZOLE 500 MG INJ 100 ML IV ONE
[2017-06-19 16:44] VITALS: BP 120/60; PULSE 86; RESP 16; TEMP 97; O2SAT 95
--- NOTE | 2017-06-22 12:31 | MP ---
cc: Britt Lopez MD DATE OF OPERATION: 06/19/2017 DATE OF SURGERY: 06/19/2017 PREOPERATIVE DIAGNOSIS: Rectal mucosal prolapse. POSTOPERATIVE DIAGNOSIS: Rectal mucosal prolapse. PROCEDURE PERFORMED: Excision of rectal mucosal prolapse. SURGEON: Britt Lopez MD BABY SITTER: [place]. ANESTHESIA: General per ET tube. ESTIMATED BLOOD LOSS: Less than 50 mL. OPERATIVE INDICATIONS: The patient is a 61-year-old female with rectal mucosal prolapse. OPERATIVE COURSE: The patient was brought to the operating room and placed in the supine position. After induction of general anesthesia, the patient was turned to the left lateral position and all bony prominences were carefully padded. The skin of the buttocks were taped apart. The perianal area was then prepped and draped in the usual sterile fashion. The mucosal prolapse was clearly visualized and covered approximately 1/3 of the circumference of the anus. It was in the right anterior position. This was gently prolapsed as the extent possible and ischiorectal block was then performed with 0.5% Marcaine. The mucosal prolapse was then excised using electrocautery and hemostasis was obtained with electrocautery. The mucosa was reapproximated in an interrupted [id number] fashion using 3-0 Vicryl. At the close of the procedure, the suture line appeared intact and there was no further evidence of prolapse. The patient tolerated the procedure well. All sponge, needle and instrument counts were correct and the patient was returned to the postanesthesia care unit in stable condition. MD PREM Yi/JACLYN , 12:09 PM , 12:30 PM
== END | disposition home or self-care (01) ==
LOC: HSDC 11:34
PROVIDERS: ATTEND Colon & Rectal Surgery
DX: K62.3 Rectal prolapse (principal); R15.9 Full incontinence of feces; E11.9 Type 2 diabetes mellitus without complications; I10 Essential (primary) hypertension; I25.2 Old myocardial infarction; K21.9 Gastro-esophageal reflux disease without esophagitis; F17.200 Nicotine dependence, unspecified, uncomplicated; Z92.3 Personal history of irradiation
CPT/HCPCS: 00902; 45505; 88305; C1765; J0690; J1100; J2250; J2270; J2370; J2405; J2710; J3010; J0131

== ENCOUNTER 2017-06-27 16:53 | Observation (INO) | payer OTHER ==
[~2017-06-27] VITALS: Ht 157.5 cm; Wt 66.8 kg
[~2017-06-27 16:53] MED LIST changes: -ACETAMINOPHEN 1000 MG/100 ML 0 ML IV ONE; -ARTIFICIAL TEARS OPTH OINT 3.5 APPLIC/3.5 GM TUBO ONE; -BUPIVACAINE HCL PF 0.5% 30 ML VIAL ONE; -CHLORHEXIDINE GLUCONATE 2 % 1 PACK (2 CLOTHS) TOPICAL PRN; -DEXAMETHASONE SOD PHOS 4 MG/ML VIAL IV ONE; -DO NOT ADM ANY ANTICOAGULANT DRUGS PRN; -FAMOTIDINE 20 MG/2 ML VIAL ONE; -GLYCOPYRROLATE 1 MG/5 ML SYRINGE IV PUSH ONE; -LACTATED RINGER'S 1000 ML IV PRN; -LIDOCAINE HCL 1% PF 5 ML SYRINGE OTHER ONE; -METOPROLOL TARTRATE 25 MG TAB PO PRN; -MIDAZOLAM HCL 2 MG/2 ML VIAL ONE; -MORPHINE SULFATE 2 MG/ML INJ IM PRN; -MORPHINE SULFATE 4 MG/ML INJ ONE; -NEOSTIGMINE 5 MG/5 ML SYRINGE IV PUSH ONE; -ONDANSETRON HCL 4 MG/2 ML VIAL IV ONE; -PHENYLEPH/NS 1000 MCG/10 ML SYR IV ONE; -POVIDONE IODINE 5% (ANTISEPSIS KIT) 4 APPLICATIONS EACH NARE PRN; -PROPOFOL 200 MG/20 ML AMP IV ONE; -ROCURONIUM INJ 50 MG/5 ML SYRINGE IV PUSH ONE; -SILVER SULFADIAZINE/LIDOCAINE CREAM 60 GM JAR SCH; -SODIUM CHLORID 0.9% 500 ML IV PRN; -ceFAZolin 2 GM PREMIX 50 ML ONE; -metroNIDAZOLE 500 MG INJ 100 ML IV ONE
[2017-06-27 16:55] VITALS: BP 158/69; PULSE 99; RESP 18; TEMP 97.6; O2SAT 99
--- NOTE | 2017-06-27 17:20 | PD ---
HPI Chief Complaint: GI Complaint Time Seen by Provider: 17:16 Travel History International Travel<30 days: No Contact w/Intl Traveler<30days: No Traveled to known affect area: No History of Present Illness HPI 61-year-old female patient with rectal prolapse repair done by Dr. Lopez a week and a half ago, presents to the ER today because she states that she has been having trouble having a bowel movement since and then today started having rectal bleeding, just red blood. She denies any fevers, pain, or other issues. Modifying Factors: None Associated Signs & Symptoms: rectal bleeding Risk Factors:Rectal prolapse surgery a week and half ago PFSH Past Medical History Hx Anticoagulant Therapy: Yes (PLAVIX) Asthma: No Anxiety: No Depression: No Heart Rhythm Problems: No Cancer: No Cardiac Catheterization: No Cardiovascular Problems: No High Cholesterol: Yes Chemotherapy: No Chest Pain: No Congestive Heart Failure: No COPD: No Coronary Artery Disease: Yes Diabetes: Yes (DIET CONTROLLED) Patient Takes Glucophage: No Diminished Hearing: No Endocrine: No Gastrointestinal Disorders: Yes Genitourinary: No Hepatitis: No Heparin Induced Thrombocytopen: No Hypertension: Yes Immune Disorder: No Musculoskeletal: No (ARTHRITIS ) Neurologic: No Psychiatric: No Reproductive: No Respiratory: Yes (CPAP) Myocardial Infarction: Yes (2011) Sleep Apnea: No Thyroid Disease: No Tetanus Vaccination: Unknown ?: Not Menopausal: Yes : 4 Para: 2 Miscarriage: 1 : 1 Past Surgical History Section: Yes Coronary Artery Bypass Graft: No Gynecologic Surgery: Yes (CSECTION PARTIAL RECTAL PROLAPSE REPAIR ON 06/19/[address] LOPEZ) Other Surgery: Yes (C SECTION, KNEE SURGERY) Family History Family Myocardial Infarction: No Social History Alcohol Use: No Tobacco Use: Yes (1 PPD) Substance Use: No Allergies-Medications (Allergen,Severity, Reaction): Coded Allergies: acetaminophen (Verified Allergy, Severe, HIVES, 06/27/17) diphenhydramine (Verified Allergy, Severe, HIVES, 06/27/17) hydrocodone (Verified Allergy, Severe, HIVES, 06/27/17) penicillin G (Verified Allergy, Severe, HIVES, 06/27/17) buspirone (Verified Allergy, Unknown, HIVES, 06/27/17) Reported Meds & Prescriptions Reported Meds & Active Scripts Active Lipitor (Atorvastatin Calcium) 40 Mg Tab 80 Mg PO HS Plavix (Clopidogrel Bisulfate) 75 Mg Tab 75 Mg PO DAILY Aspirin EC (Aspirin) 81 Mg Tabdr 81 Mg PO DAILY Reported Benefiber (Wheat Dextrin) 3 Gram/3.8 Gram Powder 3 Gm PO BID Pantoprazole (Pantoprazole Sodium) 40 Mg Tab 40 Mg PO HS Metoprolol Tartrate 25 Mg Tab 25 Mg PO HS Review of Systems Except as stated in HPI: all other systems reviewed are Neg Physical Exam Narrative GENERAL: Well-developed middle-age female patient currently in mild distress. Awake and oriented 3. SKIN: Focused skin assessment warm/dry. HEAD: Atraumatic. Normocephalic. EYES: Pupils equal and round. No scleral icterus. No injection or drainage. ENT: No nasal bleeding or discharge. Mucous membranes pink and moist. NECK: Trachea midline. No JVD. Supple. CARDIOVASCULAR: Regular rate and rhythm. No murmur appreciated. RESPIRATORY: No accessory muscle use. Clear to auscultation. Breath sounds equal bilaterally. GASTROINTESTINAL: Abdomen soft, non-tender, nondistended. Hepatic and splenic margins not palpable. RECTAL EXAM: Several external hemorrhoids palpated, mildly tender especially posteriorly, dark red blood within the vault. MUSCULOSKELETAL: No obvious deformities. No clubbing. No cyanosis. No edema. NEUROLOGICAL: Awake and alert. No obvious cranial nerve deficits. Motor grossly within normal limits. Normal speech. PSYCHIATRIC: Appropriate mood and affect; insight and judgment normal. Data Data Last Documented VS Vital Signs Date Time Temp Pulse Resp B/P (MAP) Pulse Ox O2 Delivery O2 Flow Rate FiO2 06/27/17 16:55 97.6 99 18 158/69 (98) 99 Orders Orders Complete Blood Count With Diff (06/27/17 17:16) Comprehensive Metabolic Panel (06/27/17 17:16) Prothrombin Time / Inr (Pt) (06/27/17 17:16) Act Partial Throm Time (Ptt) (06/27/17 17:16) Type And Screen (06/27/17 17:16) Ecg Monitoring (06/27/17 17:16) Iv Access Insert/Monitor (06/27/17 17:16) Oximetry (06/27/17 17:16) Sodium Chloride 0.9% Flush (Ns Flush) (06/27/17 17:30) Labs Laboratory Tests Test 06/27/17 17:15 White Blood Count 11.1 TH/MM3 Red Blood Count 4.88 MIL/MM3 Hemoglobin 13.8 GM/DL Hematocrit 42.2 % Mean Corpuscular Volume 86.6 FL Mean Corpuscular Hemoglobin 28.3 PG Mean Corpuscular Hemoglobin Concent 32.7 % Red Cell Distribution Width 14.5 % Platelet Count 289 TH/MM3 Mean Platelet Volume 9.0 FL Neutrophils (%) (Auto) 64.7 % Lymphocytes (%) (Auto) 26.8 % Monocytes (%) (Auto) 6.4 % Eosinophils (%) (Auto) 1.5 % Basophils (%) (Auto) 0.6 % Neutrophils # (Auto) 7.1 TH/MM3 Lymphocytes # (Auto) 3.0 TH/MM3 Monocytes # (Auto) 0.7 TH/MM3 Eosinophils # (Auto) 0.2 TH/MM3 Basophils # (Auto) 0.1 TH/MM3 CBC Comment DIFF FINAL Differential Comment Sodium Level 141 MEQ/L Potassium Level 3.4 MEQ/L Chloride Level 108 MEQ/L [facility] Medical Decision Making Medical Screen Exam Complete: Yes Emergency Medical Condition: Yes Medical Record Reviewed: Yes Interpretation(s) Laboratory Tests Test 06/27/17 17:15 White Blood Count 11.1 TH/MM3 (4.0-11.0) Potassium Level 3.4 MEQ/L (3.5-5.1) Chloride Level 108 MEQ/L (98-107) Differential Diagnosis Rectal bleeding, recent rectal prolapse surgery Narrative Course On exam, she has dark red rectal bleeding. It is Hemoccult positive. Her H&H is fine and she has stable vital signs currently. However, considering that she thinks she may have had a plan of bleeding at home, my plan would be to admit her for further treatment and observation. Case was discussed with Dr. Lopez partner, Dr. Oneill who agrees to admit his service. [facility] Point of Care Internal Pos. & Neg. Controls: Passed Fecal Specimen Occult Blood: Positive Diagnosis Primary Impression: Rectal bleeding Admitting Information Admitting Physician Requests: Admit Hannah Dean MD Jun 27, 2017 17:19
[2017-06-27] MEDS ORDERED: SODIUM CHLORIDE 0.9% FLUSH 10 ML FLUSH IVF PRN (17:30)
[2017-06-27 17:32] LABS: AUTOMATED NEUTROPHIL # 7.1 TH/MM3 (1.8-7.7); BASOPHIL # 0.1 TH/MM3 (0-0.2); BASOPHIL % 0.6 % (0.0-2.0); EOSINOPHIL # 0.2 TH/MM3 (0-0.4); EOSINOPHIL % 1.5 % (0.0-4.0); HEMATOCRIT 42.2 % (35.0-46.0); HEMOGLOBIN 13.8 GM/DL (11.6-15.3); LYMPH % 26.8 % (9.0-44.0); MEAN CELL VOLUME 86.6 FL (80.0-100.0); MEAN CORPUSCULAR HEMOGLOBIN 28.3 PG (27.0-34.0); MEAN CORPUSCULAR HGB CONC 32.7 % (32.0-36.0); MONO % 6.4 % (0.0-8.0); MONOCYTE # 0.7 TH/MM3 (0-0.9); NEUT % 64.7 % (16.0-70.0); PLATELET COUNT 289 TH/MM3 (150-450); RED BLOOD COUNT 4.88 MIL/MM3 (4.00-5.30); RED CELL DISTRIBUTION WIDTH 14.5 % (11.6-17.2); WHITE BLOOD COUNT 11.1 TH/MM3 (4.0-11.0)
[2017-06-27 17:45] LABS: CHLORIDE 108 MEQ/L (98-107); SODIUM (NA) 141 MEQ/L (136-145)
[2017-06-27 17:50] LABS: INTERNATIONAL NORMALIZED RATIO 0.9 RATIO; PROTHROMBIN TIME - PATIENT 9.3 SEC (9.8-11.6)
[2017-06-27 17:51] LABS: ALBUMIN 3.5 GM/DL (3.4-5.0); BICARBONATE 25.2 MEQ/L (21.0-32.0); CALCIUM 9.2 MG/DL (8.5-10.1); GLUCOSE,RANDOM 87 MG/DL (74-106)
[2017-06-27 17:52] LABS: BLOOD UREA NITROGEN 13 MG/DL (7-18)
[2017-06-27 17:55] LABS: ALT (GPT) 37 U/L (10-53); AST (GOT) 16 U/L (15-37); CREATININE 0.74 MG/DL (0.50-1.00); GLOMERULAR FILTRATION RATE 80 ML/MIN (>89)
[2017-06-27 17:56] LABS: TOTAL BILIRUBIN ADULT 0.3 MG/DL (0.2-1.0); TOTAL PROTEIN 7.5 GM/DL (6.4-8.2)
[2017-06-27 17:57] LABS: ALKALINE PHOSPHATASE 119 U/L (45-117)
[2017-06-27] MEDS: POTASSIUM CHLORIDE INJ 20 MEQ in DEXTROSE 5%-LACTATED RING INJ 1,000 ML IV SCH (18:22)
[2017-06-27 19:11] VITALS: RESP 16; O2SAT 96
[2017-06-27 19:17] VITALS: BP 123/69; PULSE 78; RESP 16; O2SAT 96
[2017-06-27 20:17] VITALS: BP 121/74; PULSE 73; RESP 20; TEMP 97; O2SAT 94
[2017-06-27 20:54] LABS: HEMATOCRIT 37.3 % (35.0-46.0); HEMOGLOBIN 12.3 GM/DL (11.6-15.3)
[2017-06-27] MEDS ORDERED: PANTOPRAZOLE SOD 40 MG DELAYED RELEASE TAB PO SCH (21:00)
[2017-06-27] MEDS ORDERED: ATORVASTATIN 40 MG TAB PO SCH (21:00)
[2017-06-27] MEDS: WHEAT DEXTRIN PO SCH (21:00)
[2017-06-27] MEDS ORDERED: METOPROLOL TARTRATE 25 MG TAB PO SCH (21:00)
[2017-06-27] MEDS: POLYETHYLENE GLYCOL 17 GM PKG PO SCH (21:35)
[2017-06-28] VITALS: BP 95/50; PULSE 74; RESP 20; TEMP 96.4; O2SAT 93
[2017-06-28 00:56] LABS: HEMATOCRIT 34.5 % (35.0-46.0); HEMOGLOBIN 11.5 GM/DL (11.6-15.3)
[2017-06-28 04:00] VITALS: BP 107/64; PULSE 79; RESP 20; TEMP 97.3; O2SAT 94
[2017-06-28] MEDS: POTASSIUM CHLORIDE INJ 20 MEQ in DEXTROSE 5%-LACTATED RING INJ 1,000 ML IV SCH (04:46)
[2017-06-28 07:16] LABS: HEMATOCRIT 36.9 % (35.0-46.0); HEMOGLOBIN 11.8 GM/DL (11.6-15.3)
[2017-06-28 07:59] VITALS: BP 117/58; PULSE 74; RESP 16; TEMP 98.1; O2SAT 94
[2017-06-28] MEDS: POLYETHYLENE GLYCOL 17 GM PKG PO SCH (09:00)
[2017-06-28] MEDS: WHEAT DEXTRIN PO SCH (09:00)
[2017-06-28 12:30] VITALS: BP 115/89; PULSE 89; RESP 18; TEMP 98.5; O2SAT 96
--- NOTE | 2017-06-28 13:28 | HHI.PR ---
Subjective Remarks Rectal bleeding postop some blood today, less than yesterday small stool Objective Vital Signs Date Time Temp Pulse Resp B/P (MAP) Pulse Ox O2 Delivery O2 Flow Rate FiO2 06/28/17 12:30 98.5 89 18 115/89 (98) 96 06/28/17 07:59 98.1 74 16 117/58 (77) 94 06/28/17 04:00 97.3 79 20 107/64 (78) 94 06/28/17 00:00 96.4 74 20 95/50 (65) 93 06/27/17 20:17 97.0 73 20 121/74 (90) 94 06/27/17 19:17 78 16 123/69 (87) 96 Room Air 06/27/17 19:11 16 96 Room Air 06/27/17 16:55 97.6 99 18 158/69 (98) 99 I/O 06/27/17 06/27/17 06/27/17 06/28/17 06/28/17 06/28/17 07:00 15:00 23:00 07:00 15:00 23:00 Intake Total 1000 ml Output Total 300 ml Balance 700 ml Intake Oral 0 ml IV Total 1000 ml Output Urine Total 300 ml # Voids 2 # Bowel Movements 1 Result Diagram: 06/28/17 0535 06/27/17 1715 Objective Remarks abdomen benign Assessment and Plan Assessment and Plan Post-op bleeding, not unexpected Hgb stable after initial equilibration with fluids Some bm but still constipated Britt Lopez MD Jun 28, 2017 13:28
== END 2017-06-28 15:17 | disposition home or self-care (01) ==
LOC: PHED 16:53 → PHEDA 17:47 → PH3A 19:58
PROVIDERS: ADMIT Colon & Rectal Surgery; ATTEND Colon & Rectal Surgery
DX: K62.5 Hemorrhage of anus and rectum (principal); I25.10 Atherosclerotic heart disease of native coronary artery without angina pectoris; I10 Essential (primary) hypertension; I25.2 Old myocardial infarction; E78.00 Pure hypercholesterolemia, unspecified; E11.9 Type 2 diabetes mellitus without complications; K59.00 Constipation, unspecified; K64.4 Residual hemorrhoidal skin tags; M19.90 Unspecified osteoarthritis, unspecified site; F17.200 Nicotine dependence, unspecified, uncomplicated; Z79.899 Other long term (current) drug therapy; Z79.84 Long term (current) use of oral hypoglycemic drugs; R19.5 Other fecal abnormalities
CPT/HCPCS: 80053; 85014; 85018; 85025; 85610; 85730; 86850; 86900; 86901; 96365; 96366; 99285; G0378; J3480; J7121